=== PATIENT | female | born 1935 | race Caucasian/White ===

== ENCOUNTER 2017-02-20 18:23 | Observation (INO) | payer MEDICARE, OTHER ==
[2017-02-20] MEDS ORDERED: Lidocaine 1% 20 ML MDV INJECT ONE (18:50)
--- NOTE | 2017-02-20 19:15 | EDM.PDOC ---
ED HPI HEAD INJURY - General Chief Complaint: Head Injury Stated Complaint: FELL INJURED HEAD AND LT HIP AND HAND Time Seen by Provider: 02/20/17 18:55 Source: Reports: Patient History Limitations: Reports: No limitations - History of Present Illness INITIAL COMMENTS - FREE TEXT/NARRATIVE: 81-year-old female was stepping out of her car when she slipped on some gravel falling onto her left side. She sustained a left parietal head injury, chest pain in her left groin and developed sharp pleuritic pain in her left chest after arriving to the hospital. No shortness of breath but has pleuritic pain with breathing. No loss of consciousness, visual complaints but she is having trouble bearing weight due to the pelvic pain. She is not on anticoagulants. She has a large hematoma on the left upper parietal and temporal area of the scalp with some bleeding. Location: Reports: parietal (Left side), other (Also has pain in the left lateral chest and left groin) Severity: moderate Associated Symptoms: Reports: headache. 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 Denies : Shortness of Breath Cardiovascular: Reports: Chest pain (Sharp localized pain under the left breast) GI/Abdominal: Denies: Abdominal pain, Nausea, Vomiting : Reports: no symptoms Musculoskeletal: Reports: other (Has pain in the left lateral pelvis and groin) . Denies: neck pain Skin: Reports: other (Open laceration with large hematoma and bruising over the left parietal scalp) Neurological: Reports: Headache, Difficulty Walking (Due to pain in the pelvis, not the head injury) Psychiatric: Reports: Anxiety ED EXAM, HEAD INJURY - Physical Exam Exam: See Below Exam Limited By: No limitations General Appearance: alert, anxious Head: other (Patient has a fairly large hematoma on the left parietal scalp with some active bleeding from the laceration, 2.5 cm overlying the hematoma.) Eyes: bilateral eye: EOMI Neck: non-tender Respiratory: no respiratory distress, lungs clear, other (She is very tender to palpation over the left lateral anterior chest under the breast. No crepitus.) Cardiovascular: regular rate, rhythm GI/Abdominal Exam (Abbreviated): soft, non tender Extremities: other (Patient has tenderness to palpation in the left groin and with passive movement of the left hip. No shortening or rotation of the left leg) Neurologic: no motor/sensory deficits - Jules Coma Score Best Eye Response (Davilla): (4) open spontaneously Best Verbal Response (Davilla): (5) oriented Best Motor Response (Jules): (6) obeys commands Course - Vital Signs Last Recorded V/S: Last Vital Signs Temp 98.8 F 02/21/17 00:25 Pulse 86 02/21/17 00:25 Resp 14 02/21/17 00:25 BP 146/90 H 02/21/17 00:25 Pulse Ox 94 L 02/21/17 00:25 - Orders/Labs/Meds Orders: Active Orders 24 hr Category Date Time Status Chest wo Cont [CT] Stat Exams 02/20/17 19:10 Taken Head wo Cont [CT] Stat Exams 02/20/17 19:10 Taken Pelvis wo Cont [CT] Stat Exams 02/20/17 19:10 Taken Sodium Chloride 0.9% [Normal Saline] 1,000 ml Med 02/20/17 23:00 Active IV ASDIRECTED Medication Orders Acetaminophen (Tylenol) 650 mg PO Q4H PRN PRN Reason: Pain (Mild 1-3)/fever Albuterol (Proventil Neb Soln) 2.5 mg NEB Q4H PRN PRN Reason: Shortness Of Breath/wheezing Bisacodyl (Dulcolax) 5 mg PO DAILY PRN PRN Reason: Constipation Diphenhydramine HCl (Benadryl) 25 mg PO BEDTIME PRN PRN Reason: Sleep Docusate Sodium (Colace) 100 mg PO BID PRN PRN Reason: Constipation Sodium Chloride (Normal Saline) 1,000 mls @ 100 mls/hr IV ASDIRECTED SHIRAZ Lorazepam (Ativan) 1 mg IV Q6H PRN PRN Reason: Nausea/Vomiting Ondansetron HCl (Zofran Odt) 4 mg PO Q6H PRN PRN Reason: Nausea able to take PO Oxycodone HCl (Oxycodone) 5 mg PO Q4H PRN PRN Reason: Pain (moderate 4-6) Pantoprazole Sodium (Protonix) 40 mg PO DAILY SHIRAZ Labs: Laboratory Tests 02/20/17 02/20/17 Range/Units 23:10 23:10 WBC 9.3 (4.5-11.0) K/uL RBC 3.63 (3.30-5.50) M/uL Hgb 11.6 L (12.0-15.0) g/dL Hct 35.2 L (36.0-48.0) % MCV 97 (80-98) fL MCH 32 H (27-31) pg MCHC 33 (32-36) % Plt Count 195 (150-400) K/uL Neut % (Auto) 79 H (36-66) % Lymph % (Auto) 13 L (24-44) % [place] % (Auto) 6 (2-6) % Eos % (Auto) 2 (2-4) % Baso % (Auto) 0 (0-1) % Sodium 143 (140-148) mmol/L Potassium 4.0 (3.6-5.2) mmol/L Chloride 106 (100-108) mmol/L Carbon Dioxide 28 (21-32) mmol/L Anion Gap 8.8 (5.0-14.0) mmol/L BUN 18 (7-18) mg/dL Creatinine 1.1 H (0.6-1.0) mg/dL Est Cr Clr Drug Dosing 31.19 mL/min Estimated GFR (MDRD) 48 L (>60) Glucose 124 H (74-106) mg/dL Calcium 8.8 (8.5-10.1) mg/dL Meds: Medications Generic Name Dose Route Start Last Admin Trade Name Freq PRN Reason Stop Dose Admin Acetaminophen 650 mg 02/21/17 00:05 Tylenol PO Q4H PRN Pain (Mild 1-3)/fever Albuterol 2.5 mg 02/21/17 00:05 Proventil Neb Soln NEB Q4H PRN Shortness Of Breath/wheezing Bisacodyl 5 mg 02/21/17 00:05 Dulcolax PO DAILY PRN Constipation Diphenhydramine HCl 25 mg 02/21/17 00:05 Benadryl PO BEDTIME PRN Sleep Docusate Sodium 100 mg 02/21/17 00:05 Colace PO BID PRN Constipation Sodium Chloride 1,000 mls @ 100 mls/hr 02/20/17 23:00 Normal Saline IV ASDIRECTED SHIRAZ Lorazepam 1 mg 02/21/17 00:05 Ativan IV Q6H PRN Nausea/Vomiting Ondansetron HCl 4 mg 02/21/17 00:05 Zofran Odt PO Q6H PRN Nausea able to take PO Oxycodone HCl 5 mg 02/21/17 00:05 Oxycodone PO Q4H PRN Pain (moderate 4-6) Pantoprazole Sodium 40 mg 02/21/17 09:00 Protonix PO DAILY SHIRAZ Discontinued Medications Generic Name Dose Route Start Last Admin Trade Name Maria Eugenia PRN Reason Stop Dose Admin Hydrocodone Bitart/Acetaminophen 1 tab 02/20/17 19:52 02/20/17 19:56 [place] 325-5 Mg PO 02/20/17 19:53 1 tab ONETIME ONE Administration Lidocaine HCl 20 ml 02/20/17 18:50 02/20/17 19:05 Xylocaine 1% INJECT 02/20/17 18:51 20 ml ONETIME ONE Administration Morphine Sulfate 2 mg 02/21/17 00:05 Morphine IVPUSH Q2H PRN Pain (severe 7-10) Ondansetron HCl 4 mg 02/20/17 23:00 02/21/17 00:37 Zofran IVPUSH 02/21/17 00:05 4 mg ONETIME ONE Administration - Re-Assessments/Exams Free Text/Narrative Re-Assessment/Exam: 02/20/17 19:16 The hematoma was anesthetized with 1% lidocaine, the laceration was cleaned with Hibiclens and saline and 4 4-0 Ethilon sutures were used to close the laceration. She then had a head, chest and pelvis CT without contrast obtained. 02/20/17 21:56 CT scan showed nothing but one very small possible subacute cerebral hemorrhage the patient remained stable. She was given one oral [place] dose and I asked the hospitalist service to consider admission for pain control and observation. Departure - Departure Time of Disposition: 00:45 Disposition: Admitted As Inpatient 65 Condition: fair Clinical Impression: Subdural hematoma, acute Laceration of scalp Qualifiers: Encounter type: initial encounter Qualified Code(s): S01.01XA - Laceration without foreign body of scalp, initial encounter Contusion of hip, left Qualifiers: Encounter type: initial encounter Qualified Code(s): S70.02XA - Contusion of left hip, initial encounter - My Orders Last 24 Hours: My Active Orders 02/20/17 19:10 Chest wo Cont [CT] Stat Head wo Cont [CT] Stat Pelvis wo Cont [CT] Stat - Assessment/Plan Last 24 Hours: My Active Orders 02/20/17 19:10 Chest wo Cont [CT] Stat Head wo Cont [CT] Stat Pelvis wo Cont [CT] Stat
[2017-02-20] MEDS ORDERED: Acetaminophen/HYDROcodone 325-5 MG Tab PO ONE (19:52)
[2017-02-20] MEDS ORDERED: Ondansetron 4 MG/2 ML SDV IVPUSH ONE (23:00)
[2017-02-20] MEDS ORDERED: Sodium Chloride 0.9% 1,000 ML IV SCH (23:00)
[2017-02-21] MEDS ORDERED: Docusate Sodium 100 MG Cap PO PRN (00:05)
[2017-02-21] MEDS ORDERED: diphenhydrAMINE 25 MG Cap PO PRN (00:05)
[2017-02-21] MEDS ORDERED: Bisacodyl 5 MG Tab PO PRN (00:05)
[2017-02-21] MEDS ORDERED: LORazepam 2 MG/ML MDV IV PRN ×2 (00:05→11:00)
[2017-02-21] MEDS ORDERED: Morphine 2 MG/ML Syringe IVPUSH PRN (00:05)
[2017-02-21] MEDS ORDERED: Albuterol 0.083% 2.5 MG/3 ML Neb Soln NEB PRN (00:05)
[2017-02-21] MEDS: Acetaminophen 325 MG Tab PO PRN ×2 (03:42→13:58)
[2017-02-21] MEDS: oxyCODONE 5 MG Tab PO PRN ×2 (03:43→07:46)
[2017-02-21] MEDS: Ondansetron 4 MG Tab.DIS PO PRN ×2 (07:46→17:00)
--- NOTE | 2017-02-21 07:54 | PCM.HP ---
H&P History of Present Illness - General Date of Service: 02/20/17 Admit Problem/Dx: Admission Diagnosis/Problem Admission Diagnosis/Problem Head and neck injury Source of Information: Patient History Limitations: Reports: No limitations - History of Present Illness Initial Comments - Free Text/Narative: - History of Present Illness INITIAL COMMENTS - FREE TEXT/NARRATIVE: 81-year-old female was stepping out of her car when she slipped on some gravel falling onto her left side. She sustained a left parietal head injury, chest pain in her left groin and developed sharp pleuritic pain in her left chest after arriving to the hospital. No shortness of breath but has pleuritic pain with breathing. No loss of consciousness, visual complaints but she is having trouble bearing weight due to the pelvic pain. She is not on anticoagulants. She has a large hematoma on the left upper parietal and temporal area of the scalp with some bleeding. Location: Reports: parietal (Left side), other (Also has pain in the left lateral chest and left groin) Severity: moderate - Re-Assessments/Exams Free Text/Narrative Re-Assessment/Exam: 02/20/17 19:16 The hematoma was anesthetized with 1% lidocaine, the laceration was cleaned with Hibiclens and saline and 4 4-0 Ethilon sutures were used to close the laceration. She then had a head, chest and pelvis CT without contrast obtained. 02/20/17 21:56 CT scan showed nothing but one very small possible subacute cerebral hemorrhage the patient remained stable. She was given one oral [place] dose and I asked the hospitalist service to consider admission for pain control and observation. Departure Onset of Symptoms: Reports: today Duration of Symptoms: Reports: Constant Location: Reports: head Quality: Reports: Other (report headache) Worsens with: Reports: Cold therapy, Movement Context: Reports: trauma (fall getting out of her care) Associated Symptoms: Reports: confusion, headaches Left Leg Pain Score (Numeric/FACES): 5 - Related Data Allergies/Adverse Reactions: Allergies Allergy/AdvReac Type Severity Reaction Status Date / Time codeine Allergy Cannot Verified 07/02/16 10:03 Remember Sulfa (Sulfonamide Allergy Cannot Verified 07/02/16 10:03 Antibiotics) Remember Home Medications: Home Meds Acetaminophen [Tylenol Arthritis] 650 mg PO DAILY 08/03/13 [History] Naproxen Sodium [Aleve] 220 mg PO BID 08/31/13 [History] Ibuprofen [Advil] 400 mg PO DAILY PRN 04/05/14 [History] 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: Musculoskeletal History: Reports: Fracture - Past Surgical History Musculoskeletal Surgical History: Reports: Arthroscopic knee, Hip replacement Social & Family History - Family History Family Medical History: Unobtainable - Tobacco Use Smoking Status *Q: Never Smoker - Caffeine Use Caffeine Use: Reports: Coffee - Recreational Drug Use Recreational Drug Use: No - Living Situation & Occupation Living situation: Reports: (lives a [place] [email or web address], drives her car of 57 years 3 years ago "misses him terribly" 2 children; no grandchildren.) H&P Review of Systems - Review of Systems: Review Of Systems: See Below General: Reports: weakness, other (left sided head pain due to fall) HEENT: Reports: other (headache with laceration repair to left temporal region) Pulmonary: Reports: No Symptoms Cardiovascular: Reports: no symptoms Gastrointestinal: Reports: Nausea Genitourinary: Reports: frequency Musculoskeletal: Reports: muscle pain, muscle stiffness Skin: Reports: other (laceration repair to left temporal region.) Psychiatric: Reports: confusion Neurological: Reports: Headache Hematologic/Lymphatic: Reports: no symptoms Immunologic: Reports: no symptoms Exam - Exam Exam: See Below - Vital Signs Vital Signs: Last Vital Signs Temp 37.1 C 02/21/17 07:00 Pulse 70 02/21/17 07:00 Resp 16 02/21/17 07:00 BP 170/92 H 02/21/17 07:00 Pulse Ox 92 L 02/21/17 07:00 Weight: 72.5 kg - Exam General: alert, oriented (oriented to name, , does not know year or day of week.), cooperative, other (reports generalized pain from fall getting out of car) HEENT: PERRLA, Conjunctiva clear, EACs clear, EOMI, Hearing intact, Mucosa moist & pink, Normal nasal septum, Posterior pharynx clear, Pupils equal, Pupils reactive, TMs clear, Glasses Neck: supple, trachea midline Lungs: Clear to auscultation, Normal respiratory effort Cardiovascular: regular rate, regular rhythm, normal S1, normal S2 Abdomen: normal bowel sounds, soft (Female) Exam: Deferred Rectal (Female) Exam: Deferred Back Exam: normal inspection, full range of motion Extremities: normal inspection Skin: warm, dry, other (laceration repair with suture to left side of head.) Neurological: reflexes equal bilateral, strength equal bilateral, normal speech , normal tone, sensation intact Neuro Extensive - Mental Status: alert, normal mood/affect, normal cognition Neuro Extensive - Motor, Sensory, Reflexes: normal gait, normal reflexes Psychiatric: alert, normal affect, normal mood Physical Exam Comments:: this is a petite elderly female, neat and well groomed. - Patient Data Lab Results last 24 hrs: Laboratory Results - last 24 hr 02/21/17 02/21/17 02/21/17 Range/Units 00:12 05:24 05:24 WBC 7.5 (4.5-11.0) K/uL RBC 3.57 (3.30-5.50) M/uL Hgb 11.4 L (12.0-15.0) g/dL Hct 34.9 L (36.0-48.0) % MCV 98 (80-98) fL MCH 32 H (27-31) pg MCHC 33 (32-36) % Plt Count 189 (150-400) K/uL Neut % (Auto) 83 H (36-66) % Lymph % (Auto) 10 L (24-44) % [place] % (Auto) 6 (2-6) % Eos % (Auto) 1 L (2-4) % Baso % (Auto) 0 (0-1) % Sodium 142 (140-148) mmol/L Potassium 4.4 (3.6-5.2) mmol/L Chloride 107 (100-108) mmol/L Carbon Dioxide 29 (21-32) mmol/L Anion Gap 6.0 (5.0-14.0) mmol/L BUN 17 (7-18) mg/dL Creatinine 1.1 H (0.6-1.0) mg/dL Est Cr Clr Drug Dosing 32.62 mL/min Estimated GFR (MDRD) 48 L (>60) Glucose 124 H (74-106) mg/dL Calcium 8.5 (8.5-10.1) mg/dL Urine Color Yellow Urine Appearance Clear Urine pH 8.0 (4.5-8.0) Ur Specific [place] 1.015 (1.008-1.030) Urine Protein Negative (NEGATIVE) mg/dL Urine Glucose (UA) Normal (NEGATIVE) mg/dL Urine Ketones Negative (NEGATIVE) mg/dL Urine Occult Blood Moderate (NEGATIVE) Urine Nitrite Negative (NEGATIVE) Urine Bilirubin Negative (NEGATIVE) Urine Urobilinogen Normal (NORMAL) mg/dL Ur Leukocyte Esterase Negative (NEGATIVE) Urine RBC 5-10 H (0-5) Urine WBC Not seen (0-5) Ur Epithelial Cells Few Amorphous Sediment Not seen Urine Bacteria Not seen Urine Mucus Not seen Result Diagrams: 02/21/17 05:24 02/21/17 05:24 *Q Meaningful Use (ADM) - VTE *Q VTE Criteria *Q: - Stroke *Q Stroke Criteria *Q: - AMI *Q AMI Criteria *Q: - Problem List (1) Contusion of hip, left SNOMED Code(s): 80936580 ICD Code: S70.02XA - CONTUSION OF LEFT HIP, INITIAL ENCOUNTER Status: Acute Priority: Medium Current Visit: Yes Qualifiers: Encounter type: initial encounter Qualified Code(s): S70.02XA - Contusion of left hip, initial encounter (2) Laceration of scalp SNOMED Code(s): 054445895 ICD Code: S01.01XA - LACERATION WITHOUT FOREIGN BODY OF SCALP, INITIAL ENCOUNTER Status: Acute Priority: Medium Current Visit: Yes Qualifiers: Encounter type: initial encounter Qualified Code(s): S01.01XA - Laceration without foreign body of scalp, initial encounter (3) Subdural hematoma, acute SNOMED Code(s): 06494620 ICD Code: I62.01 - NONTRAUMATIC ACUTE SUBDURAL HEMORRHAGE Status: Acute Priority: High Current Visit: Yes Problem List Initiated/Reviewed/Updated: Yes Orders Last 24hrs: Active Orders 24 hr Category Date Time Status Patient Status [ADT] Routine ADT 02/21/17 00:05 Active Intake and Output [RC] QSHIFT Care 02/21/17 00:05 Active Oxygen Therapy [RC] PRN Care 02/21/17 00:05 Active RT Aerosol Therapy [RC] ASDIRECTED Care 02/21/17 00:05 Active Up With Assistance [RC] ASDIRECTED Care 02/21/17 00:05 Active VTE/DVT Education [RC] Per Unit Routine Care 02/21/17 00:05 Active Vital Signs [RC] Q4H Care 02/21/17 00:05 Active Consult to Spiritual Care [CONS] Routine Cons 02/21/17 00:05 Active Regular Diet [DIET] Diet 02/21/17 Breakfast Active Head wo Cont [CT] Timed Exams 02/21/17 12:00 Ordered Acetaminophen [Tylenol] Med 02/21/17 00:05 Active 650 mg PO Q4H PRN Albuterol [Proventil Neb Soln] Med 02/21/17 00:05 Active 2.5 mg NEB Q4H PRN Bisacodyl [Dulcolax] Med 02/21/17 00:05 Active 5 mg PO DAILY PRN Docusate Sodium [Colace] Med 02/21/17 00:05 Active 100 mg PO BID PRN LORazepam [Ativan] Med 02/21/17 00:05 Active 1 mg IV Q6H PRN Ondansetron [Zofran ODT] Med 02/21/17 00:05 Active 4 mg PO Q6H PRN Pantoprazole [ProTONIX] Med 02/21/17 07:30 Active 40 mg PO ACBREAKFAST diphenhydrAMINE [Benadryl] Med 02/21/17 00:05 Active 25 mg PO BEDTIME PRN oxyCODONE Med 02/21/17 00:05 Active 5 mg PO Q4H PRN Sequential Compression Device [OM.PC] Per Unit Routine Oth 02/21/17 00:05 Ordered Resuscitation Status Routine Resus Stat 02/20/17 23:29 Ordered Medication Orders Acetaminophen (Tylenol) 650 mg PO Q4H PRN PRN Reason: Pain (Mild 1-3)/fever Last Admin: 02/21/17 03:42 Dose: 650 mg Albuterol (Proventil Neb Soln) 2.5 mg NEB Q4H PRN PRN Reason: Shortness Of Breath/wheezing Bisacodyl (Dulcolax) 5 mg PO DAILY PRN PRN Reason: Constipation Diphenhydramine HCl (Benadryl) 25 mg PO BEDTIME PRN PRN Reason: Sleep Docusate Sodium (Colace) 100 mg PO BID PRN PRN Reason: Constipation Sodium Chloride (Normal Saline) 1,000 mls @ 100 mls/hr IV ASDIRECTED SHIRAZ Lorazepam (Ativan) 1 mg IV Q6H PRN PRN Reason: Nausea/Vomiting Ondansetron HCl (Zofran Odt) 4 mg PO Q6H PRN PRN Reason: Nausea able to take PO Last Admin: 02/21/17 07:46 Dose: 4 mg Oxycodone HCl (Oxycodone) 5 mg PO Q4H PRN PRN Reason: Pain (moderate 4-6) Last Admin: 02/21/17 07:46 Dose: 5 mg Admin: 02/21/17 03:43 Dose: 5 mg Pantoprazole Sodium (Protonix) 40 mg PO ACBREAKFAST [facility] Assessment/Plan Comment:: ASSESSMENT / PLAN -This is a 81 year old female present to ER with injuried related to fall from car to road. she has a laceration to left head. pain in left hips. She had a negativ chest and pelvis CT. Head CT show a tiny subdural hematoma. will admit to hospital for monitoring overnight and repeat head CT in am. Daughter who lives in [place] was notified of admission to the hospital. Plan -Admit to [address] [facility] for further monitoring -head CT schedule in am -IV fluids for rehydration NS at 100 mL per hour -medication order for pain and nausea -Advise to notify nurses of any chest pain or other symptoms -And a.m. labs: CBC, BMP Maintenance issues -Orders home meds: -Nutrition: Regular diet -Beck[place] catheter not indicated at this time -DVT: scd -GI Prophalaxis; Protonix 40mg daily CODE STATUS: Full Admission status: Admit to Observation -I expect this patient to stay less than 24 hours, not to exceed 96 hours for evaluation and management of this problem. Disposition; home Primary care provider:
[2017-02-21] MEDS: Pantoprazole 40 MG Tab.CR PO SCH (08:56)
[2017-02-21] MEDS ORDERED: Pantoprazole 40 MG Tab.CR PO SCH (09:00)
[2017-02-21] MEDS ORDERED: traMADol 50 MG Tab PO PRN (10:41)
--- NOTE | 2017-02-21 12:30 | PCM.PN ---
- General Info Date of Service: 02/21/17 Functional Status: Reports: pain controlled, urinating - Review of Systems Gastrointestinal: Reports: Vomiting Musculoskeletal: Reports: leg pain Psychiatric: Reports: confusion Systems Review Comment:: No acute events since admission. She did vomit following use of her hydrocodone this morning. She does have some short-term memory difficulties but they don't seem much worse than usual. She reports some pain on her left lateral thigh and hip but no chest pain, elbow pain, shoulder pain or knee pain. Repeat head CT this morning did not show any evidence for subdural hematoma. - Patient Data Vitals - most recent: Last Vital Signs Temp 36.8 C 02/21/17 10:52 Pulse 68 02/21/17 10:52 Resp 20 02/21/17 10:52 BP 145/90 H 02/21/17 10:52 Pulse Ox 96 02/21/17 10:52 Weight - most recent: 72.5 kg I&O - last 24 hours: Intake & Output 02/20/17 02/21/17 02/21/17 22:59 06:59 14:59 Output Total 250 Balance -250 Lab Results last 24 hrs: Laboratory Results - last 24 hr 02/21/17 02/21/17 02/21/17 Range/Units 00:12 05:24 05:24 WBC 7.5 (4.5-11.0) K/uL RBC 3.57 (3.30-5.50) M/uL Hgb 11.4 L (12.0-15.0) g/dL Hct 34.9 L (36.0-48.0) % MCV 98 (80-98) fL MCH 32 H (27-31) pg MCHC 33 (32-36) % Plt Count 189 (150-400) K/uL Neut % (Auto) 83 H (36-66) % Lymph % (Auto) 10 L (24-44) % [place] % (Auto) 6 (2-6) % Eos % (Auto) 1 L (2-4) % Baso % (Auto) 0 (0-1) % Sodium 142 (140-148) mmol/L Potassium 4.4 (3.6-5.2) mmol/L Chloride 107 (100-108) mmol/L Carbon Dioxide 29 (21-32) mmol/L Anion Gap 6.0 (5.0-14.0) mmol/L BUN 17 (7-18) mg/dL Creatinine 1.1 H (0.6-1.0) mg/dL Est Cr Clr Drug Dosing 32.62 mL/min Estimated GFR (MDRD) 48 L (>60) Glucose 124 H (74-106) mg/dL Calcium 8.5 (8.5-10.1) mg/dL Urine Color Yellow Urine Appearance Clear Urine pH 8.0 (4.5-8.0) Ur Specific [place] 1.015 (1.008-1.030) Urine Protein Negative (NEGATIVE) mg/dL Urine Glucose (UA) Normal (NEGATIVE) mg/dL Urine Ketones Negative (NEGATIVE) mg/dL Urine Occult Blood Moderate (NEGATIVE) Urine Nitrite Negative (NEGATIVE) Urine Bilirubin Negative (NEGATIVE) Urine Urobilinogen Normal (NORMAL) mg/dL Ur Leukocyte Esterase Negative (NEGATIVE) Urine RBC 5-10 H (0-5) Urine WBC Not seen (0-5) Ur Epithelial Cells Few Amorphous Sediment Not seen Urine Bacteria Not seen Urine Mucus Not seen Med Orders - Current: Current Medications Acetaminophen (Tylenol) 650 mg PO Q4H PRN PRN Reason: Pain (Mild 1-3)/fever Last Admin: 02/21/17 03:42 Dose: 650 mg Albuterol (Proventil Neb Soln) 2.5 mg NEB Q4H PRN PRN Reason: Shortness Of Breath/wheezing Bisacodyl (Dulcolax) 5 mg PO DAILY PRN PRN Reason: Constipation Diphenhydramine HCl (Benadryl) 25 mg PO BEDTIME PRN PRN Reason: Sleep Docusate Sodium (Colace) 100 mg PO BID PRN PRN Reason: Constipation Sodium Chloride (Normal Saline) 1,000 mls @ 100 mls/hr IV ASDIRECTED [facility]IR[facility] Lorazepam (Ativan) 0.5 mg IV Q6H PRN PRN Reason: Nausea/Vomiting Ondansetron HCl (Zofran Odt) 4 mg PO Q6H PRN PRN Reason: Nausea able to take PO Last Admin: 02/21/17 07:46 Dose: 4 mg Pantoprazole Sodium (Protonix) 40 [facility] Last Admin: 02/21/17 08:56 Dose: 40 mg Tramadol HCl (Ultram) 50 mg PO Q4H PRN PRN Reason: Pain Discontinued Medications Hydrocodone Bitart/Acetaminophen ([place] 325-5 Mg) 1 tab PO ONETIME ONE Stop: 02/20/17 19:53 Last Admin: 02/20/17 19:56 Dose: 1 tab Lidocaine HCl (Xylocaine 1%) 20 ml INJECT ONETIME ONE Stop: 02/20/17 18:51 Last Admin: 02/20/17 19:05 Dose: 20 ml Lorazepam (Ativan) 1 mg IV Q6H PRN PRN Reason: Nausea/Vomiting Morphine Sulfate (Morphine) 2 mg IVPUSH Q2H PRN PRN Reason: Pain (severe 7-10) Ondansetron HCl (Zofran) 4 mg IVPUSH ONETIME ONE Stop: 02/21/17 00:05 Last Admin: 02/21/17 00:37 Dose: 4 mg Oxycodone HCl (Oxycodone) 5 mg PO Q4H PRN PRN Reason: Pain (moderate 4-6) Last Admin: 02/21/17 07:46 Dose: 5 mg - Exam Quality Assessment: No: supplemental oxygen General: alert, cooperative, no acute distress. No: oriented HEENT: Pupils equal, Other (intact sutures, no bleeding L faith area) Neck: supple Lungs: Normal respiratory effort Cardiovascular: Regular Rate, Regular Rhythm, Other (no chest wall tenderness) Abdomen: soft, no tenderness, no distension Back Exam: full range of motion Extremities: no edema, no cyanosis, other (no joint deformity or tenderness of left shoulder, elbow, wrist, knee or ankle. Mild tenderness left lateral thigh. ) Skin: warm, dry Psy/Mental Status: alert, normal affect - Problem List Review Problem List Initiated/Reviewed/Updated: Yes - My Orders Last 24 Hours: My Active Orders 02/21/17 09:11 PT Evaluation and Treatment [CONS] Routine 02/21/17 09:30 Head wo Cont [CT] Timed 02/21/17 10:41 traMADol [Ultram] 50 mg PO Q4H PRN 02/21/17 11:00 LORazepam [Ativan] 0.5 mg IV Q6H PRN 02/21/17 12:28 Up to Chair [RC] QID - Plan Plan:: ASSESSMENT / PLAN Fall with left hip pain - imaging negative. Some concern for subdural hematoma last night but repeat study this morning did not show any evidence for subdural and review of exam from last night does not reveal any subdural that I can see. Patient does not tolerate narcotics well with vomiting and increased confusion. Physical therapy thought maybe she would need to be placed in a [facility] she can make some significant gains. -Pain control with acetaminophen and tramadol for severe pain -medication order for nausea -Up to chair 4 times a day Suspected cognitive deficits - patient with obvious short-term memory issues. Has been functioning fairly well in her current living situation though I have some concerns about her safety, especially with driving. I will encourage her to give up driving privileges at least temporarily if not permanently at the time of discharge. Maintenance issues - -Nutrition: Regular diet -Beck[place] catheter not indicated at this time -DVT: scd -GI Prophalaxis; Protonix 40mg daily Admission status: Admit to Observation -I expect this patient to stay less than 24 hours, not to exceed 96 hours for evaluation and management of this problem. Disposition - anticipate discharge back to her apartment after the hospital stay Lew Tucker M.D.
[2017-02-22] MEDS: Acetaminophen 325 MG Tab PO PRN ×3 (02:42→14:23)
[2017-02-22] MEDS: Pantoprazole 40 MG Tab.CR PO SCH (07:14)
--- NOTE | 2017-02-22 10:14 | PCM.PN ---
- General Info Date of Service: 02/22/17 Functional Status: Reports: pain controlled, tolerating diet, ambulating - Review of Systems General: Reports: Weakness Musculoskeletal: Reports: joint pain (hips) Neurological: Reports: Confusion - Patient Data Vitals - most recent: Last Vital Signs Temp 37.0 C 02/22/17 07:07 Pulse 72 02/22/17 07:07 Resp 16 02/22/17 07:07 BP 132/54 L 02/22/17 07:07 Pulse Ox 90 L 02/22/17 07:07 Weight - most recent: 72.5 kg I&O - last 24 hours: Intake & Output 02/21/17 02/22/17 02/22/17 22:59 06:59 14:59 Intake Total 60 240 Output Total 1100 Balance -1040 240 Med Orders - Current: Current Medications Acetaminophen (Tylenol) 650 mg PO Q4H PRN PRN Reason: Pain (Mild 1-3)/fever Last Admin: 02/22/17 07:14 Dose: 650 mg Albuterol (Proventil Neb Soln) 2.5 mg NEB Q4H PRN PRN Reason: Shortness Of Breath/wheezing Bisacodyl (Dulcolax) 5 mg PO DAILY PRN PRN Reason: Constipation Diphenhydramine HCl (Benadryl) 25 mg PO BEDTIME PRN PRN Reason: Sleep Last Admin: 02/22/17 02:42 Dose: 25 mg Docusate Sodium (Colace) 100 mg PO BID PRN PRN Reason: Constipation Last Admin: 02/22/17 07:14 Dose: 100 mg Influenza Virus Vaccine (Fluzone/Fluarix Vaccine) 60 mcg IM .ONCE ONE Stop: 02/22/17 12:01 Lorazepam (Ativan) 0.5 mg IV Q6H PRN PRN Reason: Nausea/Vomiting Last Admin: 02/21/17 23:50 Dose: 0.5 mg Ondansetron HCl (Zofran Odt) 4 mg PO Q6H PRN PRN Reason: Nausea able to take PO Last Admin: 02/21/17 17:00 Dose: 4 mg Pantoprazole Sodium (Protonix) 40 mg PO ACBREAKFAST [facility] Last Admin: 02/22/17 07:14 Dose: 40 mg Pneumococcal Polyvalent Vaccine (Pneumovax 23) 0.5 ml IM .ONCE ONE Stop: 02/22/17 12:01 Tramadol HCl (Ultram) 50 mg PO Q4H PRN PRN Reason: Pain Last Admin: 02/21/17 20:31 Dose: 50 mg Discontinued Medications Hydrocodone Bitart/Acetaminophen ([place] 325-5 Mg) 1 tab PO ONETIME ONE Stop: 02/20/17 19:53 Last Admin: 02/20/17 19:56 Dose: 1 tab Sodium Chloride (Normal Saline) 1,000 mls @ 100 mls/hr IV ASD[facility]RECTED [facility] Lidocaine HCl (Xylocaine 1%) 20 ml INJECT ONETIME ONE Stop: 02/20/17 18:51 Last Admin: 02/20/17 19:05 Dose: 20 ml Lorazepam (Ativan) 1 mg IV Q6H PRN PRN Reason: Nausea/Vomiting Morphine Sulfate (Morphine) 2 mg IVPUSH Q2H PRN PRN Reason: Pain (severe 7-10) Ondansetron HCl (Zofran) 4 mg IVPUSH ONETIME ONE Stop: 02/21/17 00:05 Last Admin: 02/21/17 00:37 Dose: 4 mg Oxycodone HCl (Oxycodone) 5 mg PO Q4H PRN PRN Reason: Pain (moderate 4-6) Last Admin: 02/21/17 07:46 Dose: 5 mg - Exam Quality Assessment: No: supplemental oxygen General: alert, cooperative, no acute distress Neck: supple Lungs: Normal respiratory effort Abdomen: soft, no distension Extremities: no edema, no cyanosis Skin: warm, dry Psy/Mental Status: alert, normal affect - My Orders Last 24 Hours: My Active Orders 02/21/17 09:30 Head wo Cont [CT] Timed 02/21/17 10:41 traMADol [Ultram] 50 mg PO Q4H PRN 02/21/17 11:00 LORazepam [Ativan] 0.5 mg IV Q6H PRN 02/21/17 12:28 Up to Chair [RC] QID 02/21/17 13:22 Convert IV to [place] Lock [OM.PC] Routine 02/22/17 12:00 Flu Vaccine (36Mos+)/PF [Fluzone/Fluarix Vaccine] 60 mcg IM .ONCE ONE Pneumococcal Polyvalent-23 Vac [Pneumovax 23] 0.5 ml IM .ONCE ONE - Plan Plan:: ASSESSMENT / PLAN Fall with left hip pain - imaging negative. Some concern for subdural hematoma last night but repeat study this morning did not show any evidence for subdural and review of exam from last night does not reveal any subdural that I can see. Patient does not tolerate narcotics well with vomiting and increased confusion. Physical therapy thought maybe she would need to be placed in a halfway she can make some significant gains. -Pain control with acetaminophen and tramadol for severe pain -medication order for nausea -Up to chair 4 times a day Suspected cognitive deficits - patient with obvious short-term memory issues. Has been functioning fairly well in her current living situation though I have some concerns about her safety, especially with driving. I will encourage her to give up driving privileges at least temporarily if not permanently at the time of discharge. Maintenance issues - -Nutrition: Regular diet -[place] catheter not indicated at this time -DVT: scd -GI Prophalaxis; Protonix 40mg daily Admission status: Admit to Observation -I expect this patient to stay less than 24 hours, not to exceed 96 hours for evaluation and management of this problem. Disposition - anticipate discharge back to her apartment after the hospital stay Lew Tucker M.D.
[2017-02-22 10:56] VITALS: BP 118/68
[2017-02-22] MEDS ORDERED: Pneumococcal Polyvalent-23 Vaccine 0.5 ML SDV IM ONE (12:00)
[2017-02-22] MEDS ORDERED: Flu Vaccine 2016-17(36Mos+)/PF 60 MCG/0.5 ML Syringe IM ONE (12:00)
--- NOTE | 2017-02-22 13:19 | PCM.DCSUM1 ---
Discharge Summary - Hospital Course Brief History: 81-year-old female with mild cognitive deficits who presents after a fall and injury to the left side of her body including a left scalp hematoma. She was admitted for observation and pain control. - Discharge Data Discharge Date: 02/22/17 Discharge Disposition: Home, W Home Health Agency 06 Condition: Good - Discharge Diagnosis/Problem(s) (1) Fall SNOMED Code(s): 5419650, 173391489 ICD Code: W19.XXXA - UNSPECIFIED FALL, INITIAL ENCOUNTER Status: Acute Current Visit: Yes Qualifiers: Encounter type: initial encounter Qualified Code(s): W19.XXXA - Unspecified fall, initial encounter (2) Laceration of scalp SNOMED Code(s): 729962484 ICD Code: S01.01XA - LACERATION WITHOUT FOREIGN BODY OF SCALP, INITIAL ENCOUNTER Status: Acute Priority: Medium Current Visit: Yes Qualifiers: Encounter type: initial encounter Qualified Code(s): S01.01XA - Laceration without foreign body of scalp, initial encounter (3) Contusion of hip, left SNOMED Code(s): 02359645 ICD Code: S70.02XA - CONTUSION OF LEFT HIP, INITIAL ENCOUNTER Status: Acute Priority: Medium Current Visit: Yes Qualifiers: Encounter type: initial encounter Qualified Code(s): S70.02XA - Contusion of left hip, initial encounter - Patient Summary/Data Consults: Consultations 02/21/17 00:05 Consult to Spiritual Care [CONS] Routine Spiritual Care Reason for Consult: Loss Spiritual Care Specialty: [employer] Worker 02/21/17 09:11 PT Evaluation and Treatment [CONS] Routine Please Evaluate and Treat. PT Reason for Consult: Ambulation This query below is only for informational purposes and is not editable. Admission Diagnosis/Problem: Head and neck injury Hospital Course: Carline presented to the emergency room after falling while trying to get out of the car and suffering trauma to the left side of her body and the left side of her head. Workup in the emergency room revealed a left temporal area laceration that was repaired with sutures. Initial head CT raise some concern for a tiny subdural hematoma. She was very weak and had a fair amount of pain and was admitted for observation. The morning after admission she had some difficulty with confusion as well as vomiting. These were thought to be related to the 2 doses of hydrocodone she received. She has not had recurrence of these after the hydrocodone was discontinued. A repeat head CT the morning after admission showed no evidence for subdural hematoma and further review of the original head CT in discussion with the radiologist suggested there may not have been a subdural presents as initially concerned. Her mental status seems to have returned to baseline. Her pain has been fairly well-controlled utilizing only acetaminophen and a single dose of tramadol at bedtime last night. There is no evidence for infection. She did work with physical therapy the morning after admission and they thought maybe a skilled nursing would be an official but this was while she was confused and still in a fair amount of pain. She has made some improvements as far as her physical condition and is ambulating well with a front-wheeled walker. I do have some concerns about her memory but her current living situation seems to be adequate since she has not had repeated trips to the emergency room or significant difficulties as of yet. I suspect that she had at least a mild concussion from the fall and recommended that she not drive for the next 2 weeks. With her memory difficulties it may be best if she did not drive anymore. On the day of discharge her daughter is planning to come stay with her for a couple of days so she will be safe at home. We did fill out a referral for home health care to provide assistance. The daughter is going to be searching for some additional assistance to help keep her safe at home as well. The patient will be utilizing acetaminophen for mild to moderate pain and tramadol only for severe pain. She will need to have her scalp sutures removed in approximately 10 days. - Patient Instructions Diet: Regular Diet as Tolerated Activity: As Tolerated Driving: Do Not Drive (At least until your followup with Dr. Sun) Showering/Bathing: May Shower Notify Provider of: Fever, Increased Pain, Nausea and/or Vomiting Other/Special Instructions: 1. You were in the hospital for observation after a fall with a left scalp hematoma. The fall was complicated by an increase in your arthritis pain. Your pain has been well-controlled using only pills and I believe you're safe for outpatient management at this time. I would recommend that you take acetaminophen 1000 mg 3 times a day to help control both the acute pain from the fall as well as your chronic arthritis-type pain. You can use the tramadol as needed for severe pain. This medication may make you a little bit sleepy and bedtime is a good time to consider using this pain medication. 2. You suffered a mild concussion from the fall and I would recommend that should not drive for at least the next 2 weeks. You should discuss future driving privileges with Dr. Sun at your followup appointment. 3. You should have your sutures removed in approximately 10 days. 4. I have placed a referral to home health care services to provide home physical therapy. 5. Please seek medical attention if you develop fever greater than 101 , increasing confusion or severe pain that cannot be controlled with acetaminophen or tramadol. - Discharge Plan Prescriptions/Med Rec: Acetaminophen 1,000 mg PO TID #90 tablet traMADol [Ultram] 50 mg PO Q4H PRN #10 tablet PRN Reason: Pain (Severe 7-10) Home Medications: Home Meds Naproxen Sodium [Aleve] 220 mg PO BID 08/31/13 [History] Acetaminophen 1,000 mg PO TID #90 tablet 02/22/17 [Rx] traMADol [Ultram] 50 mg PO Q4H PRN #10 tablet 02/22/17 [Rx] Patient Handouts: Facial or Scalp Contusion Referrals: Nj Sun MD [Primary Care Provider] - (followup in 10 days - followup hospital stay for fall and scalp hematoma, will need sutures removed) - Discharge Summary/Plan Comment DC Time >30 min.: No (25) - Patient Data Vitals - Most Recent: Last Vital Signs Temp 36.2 C 02/22/17 10:55 Pulse 58 L 02/22/17 10:55 Resp 16 02/22/17 10:55 BP 118/68 02/22/17 10:55 Pulse Ox 92 L 02/22/17 10:55 Weight - Most Recent: 72.5 kg I&O - Last 24 hours: Intake & Output 02/21/17 02/22/17 02/22/17 22:59 06:59 14:59 Intake Total 60 240 240 Output Total 1100 Balance -1040 240 240 Med Orders - Current: Current Medications Acetaminophen (Tylenol) 650 mg PO Q4H PRN PRN Reason: Pain (Mild 1-3)/fever Last Admin: 02/22/17 07:14 Dose: 650 mg Albuterol (Proventil Neb Soln) 2.5 mg NEB Q4H PRN PRN Reason: Shortness Of Breath/wheezing Bisacodyl (Dulcolax) 5 mg PO DAILY PRN PRN Reason: Constipation Diphenhydramine HCl (Benadryl) 25 mg PO BEDTIME PRN PRN Reason: Sleep Last Admin: 02/22/17 02:42 Dose: 25 mg Docusate Sodium (Colace) 100 mg PO BID PRN PRN Reason: Constipation Last Admin: 02/22/17 07:14 Dose: 100 mg Lorazepam (Ativan) 0.5 mg IV Q6H PRN PRN Reason: Nausea/Vomiting Last Admin: 02/21/17 23:50 Dose: 0.5 mg Ondansetron HCl (Zofran Odt) 4 mg PO Q6H PRN PRN Reason: Nausea able to take PO Last Admin: 02/21/17 17:00 Dose: 4 mg Pantoprazole Sodium (Protonix) 40 mg PO ACBREAKFAST [facility] Last Admin: 02/22/17 07:14 Dose: 40 mg Tramadol HCl (Ultram) 50 mg PO Q4H PRN PRN Reason: Pain Last Admin: 02/21/17 20:31 Dose: 50 mg Discontinued Medications Hydrocodone Bitart/Acetaminophen ([place] 325-5 Mg) 1 tab PO ONETIME ONE Stop: 02/20/17 19:53 Last Admin: 02/20/17 19:56 Dose: 1 tab Sodium Chloride (Normal Saline) 1,000 mls @ 100 mls/hr IV ASDIRECTED [facility] Influenza Virus Vaccine (Fluzone/Fluarix Vaccine) 60 mcg IM .ONCE ONE Stop: 02/22/17 12:01 Lidocaine HCl (Xylocaine 1%) 20 ml INJECT ONETIME ONE Stop: 02/20/17 18:51 Last Admin: 02/20/17 19:05 Dose: 20 ml Lorazepam (Ativan) 1 mg IV Q6H PRN PRN Reason: Nausea/Vomiting Morphine Sulfate (Morphine) 2 mg IVPUSH Q2H PRN PRN Reason: Pain (severe 7-10) Ondansetron HCl (Zofran) 4 mg IVPUSH ONETIME ONE Stop: 02/21/17 00:05 Last Admin: 02/21/17 00:37 Dose: 4 mg Oxycodone HCl (Oxycodone) 5 mg PO Q4H PRN PRN Reason: Pain (moderate 4-6) Last Admin: 02/21/17 07:46 Dose: 5 mg Pneumococcal Polyvalent Vaccine (Pneumovax 23) 0.5 ml IM .ONCE ONE Stop: 02/22/17 12:01 *Q Meaningful Use (DIS) - VTE *Q VTE Criteria *Q: - Stroke *Q Stroke Criteria *Q: - AMI *Q AMI Criteria *Q:
== END 2017-02-22 15:30 | disposition home health service (06) ==
LOC: JP.ED 18:23 → JP.MS 23:22
PROVIDERS: ADMIT Internal Medicine; ATTEND Internal Medicine
DX: S01.01XA Laceration without foreign body of scalp, initial encounter (principal); S70.02XA Contusion of left hip, initial encounter; W19.XXXA Unspecified fall, initial encounter; Z79.899 Other long term (current) drug therapy; Z88.2 Allergy status to sulfonamides; Z88.8 Allergy status to other drugs, medicaments and biological substances; Z96.649 Presence of unspecified artificial hip joint; Z96.659 Presence of unspecified artificial knee joint; Z23 Encounter for immunization
CPT/HCPCS: 12001; 36415; 70450; 71250; 72192; 80048; 81001; 85025; 96374; 96375; 97162; 99217; 99220; 99225; 99285; A9270; G0008; G0009; G0378; J2060; J2405; 90686; 90732

== ENCOUNTER 2017-03-19 20:20 | Inpatient (IN) | payer MEDICARE, OTHER ==
[2017-03-19] MEDS ORDERED: HYDROmorphone 0.5 MG/0.5 ML Syringe IVPUSH ONE ×3 (20:22→22:40)
[2017-03-19] MEDS ORDERED: Ondansetron 4 MG/2 ML SDV IVPUSH ONE (20:22)
[2017-03-19] MEDS ORDERED: Sodium Chloride 0.9% 1,000 ML IV SCH ×2 (20:30→22:30)
[2017-03-19] MEDS ORDERED: Sodium Chloride 0.9% 10 ML Syringe FLUSH ONE (22:04)
[2017-03-19] MEDS ORDERED: Sodium Chloride 0.9% 75 ML IV SCH (22:15)
[2017-03-19] MEDS ORDERED: Iopamidol 612 MG/ML 100 ML Bottle IV SCH (22:15)
[2017-03-19] MEDS ORDERED: cefOXitin 2 GM in Sodium Chloride 0.9% 50 ML IV ONE (23:04)
--- NOTE | 2017-03-19 23:08 | EDM.PDOC ---
ED HPI GI/ABDOMINAL - General Chief Complaint: Abdominal Pain Stated Complaint: MEDICAL Time Seen by Provider: 03/19/17 20:40 Source: Reports: Patient History Limitations: Reports: No limitations - History of Present Illness INITIAL COMMENTS - FREE TEXT/NARRATIVE: pt arrived with acute onset abdomanal pain on the rt mid abdoman. She was well earlier in the day. Timing/Duration: Reports: Hour(s):, Getting worse, Other ( very sudden onset. ) Location: other (rt mid abdoman.) Quality: Reports: stabbing, throbbing, radiating Severity: severe Associated Symptoms (-Female): Reports: other ( severe rt sided abdomanal pain ) - Related Data Allergies/ADRs: Allergies Allergy/AdvReac Type Severity Reaction Status Date / Time codeine Allergy Cannot Verified 03/19/17 20:45 Remember Sulfa (Sulfonamide Allergy Cannot Verified 03/19/17 20:45 Antibiotics) Remember Home Meds: Home Meds Naproxen Sodium [Aleve] 220 mg PO BID 08/31/13 [History] Acetaminophen 600 mg PO QID 03/11/17 [History] Ascorbic Acid [Vitamin C] 1 tab PO DAILY 03/11/17 [History] Vitamin E Mixed [Vitamin E] 1 tab PO DAILY 03/11/17 [History] Zinc 1 tab PO DAILY 03/11/17 [History] 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: Musculoskeletal History: Reports: Fracture - Infectious Disease History Infectious Disease History: Reports: Chicken pox, Rheumatic Fever - Past Surgical History HEENT Surgical History: Reports: Tonsillectomy Musculoskeletal Surgical History: Reports: Arthroscopic knee, Hip replacement Social & Family History - Family History Family Medical History: Unobtainable - Tobacco Use Smoking Status *Q: Never Smoker Second Hand Smoke Exposure: No - Caffeine Use Caffeine Use: Reports: Coffee - Recreational Drug Use Recreational Drug Use: No - Living Situation & Occupation Living situation: Reports: ([facility] [place] [facility], drives her car of 57 years 3 years ago "misses him terribly" 2 children; no grandchildren.) ED ROS GENERAL - Review of Systems Review Of Systems: See Below Constitutional: Reports: no symptoms HEENT: Reports: No symptoms Respiratory: Reports: No Symptoms Cardiovascular: Reports: No symptoms Endocrine: Reports: no symptoms GI/Abdominal: Reports: Other (marked pain on the rt side. ) : Reports: no symptoms Musculoskeletal: Reports: no symptoms Skin: Reports: no symptoms Neurological: Reports: No Symptoms ED EXAM, GI/ABD - Physical Exam Exam: See Below Text/Narrative:: pt arrived with very severe pain in the rt abdoman. This was a very sudden onset. Exam Limited By: No limitations General Appearance: alert, severe distress Eyes: bilateral: normal appearance, EOMI Ears: normal TMs Nose: normal inspection Throat/Mouth: Normal inspection Head: atraumatic Neck: normal inspection Respiratory/Chest: no respiratory distress Cardiovascular: regular rate, rhythm GI/Abdominal: other (marked tenderness in the rt abdoman. She is not vomiting. ) Rectal (Female) Exam: Deferred Back Exam: normal inspection Extremities: normal inspection Neurological: alert, oriented, normal cognition Course - Vital Signs Last Recorded V/S: Last Vital Signs Temp 36.1 C 03/19/17 22:32 Pulse 93 03/19/17 22:32 Resp 19 03/19/17 20:37 BP 149/55 H 03/19/17 22:32 Pulse Ox 89 L 03/19/17 22:32 - Orders/Labs/Meds Orders: Active Orders 24 hr Category Date Time Status Abdomen Pelvis w Cont [CT] Stat Exams 03/19/17 21:59 Taken Iopamidol [Isovue-300 (61%)] Med 03/19/17 22:15 Active 100 ml IV . DIRECTED Sodium Chloride 0.9% [Normal Saline] 1,000 ml Med 03/19/17 20:30 Active IV ASDIRECTED Sodium Chloride 0.9% [Normal Saline] 1,000 ml Med 03/19/17 22:30 Active IV ASDIRECTED Sodium Chloride 0.9% [Normal Saline] 75 ml Med 03/19/17 22:15 Active IV ASDIRECTED Medication Orders Sodium Chloride (Normal Saline) 1,000 mls @ 999 mls/hr IV ASDIRECTED SHIRAZ Last Admin: 03/19/17 20:29 Dose: 999 mls/hr Sodium Chloride (Normal Saline) 75 mls @ 3 mls/sec IV ASDIRECTED SHIRAZ Last Admin: 03/19/17 22:28 Dose: 3 mls/sec Sodium Chloride (Normal Saline) 1,000 mls @ 300 mls/hr IV ASDIRECTED SHIRAZ Last Admin: 03/19/17 22:36 Dose: 300 mls/hr Iopamidol (Isovue-300 (61%)) 100 ml IV . DIRECTED SHIRAZ Last Admin: 03/19/17 22:27 Dose: 100 ml Labs: Laboratory Tests 03/19/17 03/19/17 03/19/17 Range/Units 20:30 20:30 20:30 WBC 8.5 (4.5-11.0) K/uL RBC 3.35 (3.30-5.50) M/uL Hgb 10.9 L (12.0-15.0) g/dL Hct 33.0 L (36.0-48.0) % MCV 99 H (80-98) fL MCH 33 H (27-31) pg MCHC 33 (32-36) % Plt Count 315 (150-400) K/uL Neut % (Auto) 64 (36-66) % Lymph % (Auto) 21 L (24-44) % [place] % (Auto) 11 H (2-6) % Eos % (Auto) 4 (2-4) % Baso % (Auto) 0 (0-1) % Sodium 140 (140-148) mmol/L Potassium 4.3 (3.6-5.2) mmol/L Chloride 104 (100-108) mmol/L Carbon Dioxide 28 (21-32) mmol/L Anion Gap 8.1 (5.0-14.0) mmol/L BUN 22 H (7-18) mg/dL Creatinine 1.2 H (0.6-1.0) mg/dL Est Cr Clr Drug Dosing 29.89 mL/min Estimated GFR (MDRD) 43 L (>60) Glucose 106 (74-106) mg/dL Calcium 8.8 (8.5-10.1) mg/dL Total Bilirubin 0.8 (0.2-1.0) mg/dL AST 23 (15-37) U/L ALT 23 (12-78) U/L Alkaline Phosphatase 210 H (46-116) U/L C-Reactive Protein 2.90 H (0.0-0.3) mg/dL Total Protein 7.2 (6.4-8.2) g/dL Albumin 3.6 (3.4-5.0) g/dL Globulin 3.6 H (2.3-3.5) g/dL Albumin/Globulin Ratio 1.0 L (1.2-2.2) Urine Color Urine Appearance Urine pH (4.5-8.0) Ur Specific [place] (1.008-1.030) Urine Protein (NEGATIVE) mg/dL Urine Glucose (UA) (NEGATIVE) mg/dL Urine Ketones (NEGATIVE) mg/dL Urine Occult Blood (NEGATIVE) Urine Nitrite (NEGATIVE) Urine Bilirubin (NEGATIVE) Urine Urobilinogen (NORMAL) mg/dL Ur Leukocyte Esterase (NEGATIVE) Urine RBC (0-5) Urine WBC (0-5) Ur Epithelial Cells Amorphous Sediment Urine Bacteria Urine Mucus 03/19/17 Range/Units 21:40 WBC (4.5-11.0) K/uL RBC (3.30-5.50) M/uL Hgb (12.0-15.0) g/dL Hct (36.0-48.0) % MCV (80-98) fL MCH (27-31) pg MCHC (32-36) % Plt Count (150-400) K/uL Neut % (Auto) (36-66) % Lymph % (Auto) (24-44) % [place] % (Auto) (2-6) % Eos % (Auto) (2-4) % Baso % (Auto) (0-1) % Sodium (140-148) mmol/L Potassium (3.6-5.2) mmol/L Chloride (100-108) mmol/L Carbon Dioxide (21-32) mmol/L Anion Gap (5.0-14.0) mmol/L BUN (7-18) mg/dL Creatinine (0.6-1.0) mg/dL Est Cr Clr Drug Dosing mL/min Estimated GFR (MDRD) (>60) Glucose (74-106) mg/dL Calcium (8.5-10.1) mg/dL Total Bilirubin (0.2-1.0) mg/dL AST (15-37) U/L ALT (12-78) U/L Alkaline Phosphatase (46-116) U/L C-Reactive Protein (0.0-0.3) mg/dL Total Protein (6.4-8.2) g/dL Albumin (3.4-5.0) g/dL Globulin (2.3-3.5) g/dL Albumin/Globulin Ratio (1.2-2.2) Urine Color Yellow Urine Appearance Clear Urine pH 5.0 (4.5-8.0) Ur Specific [place] 1.015 (1.008-1.030) Urine Protein Negative (NEGATIVE) mg/dL Urine Glucose (UA) Normal (NEGATIVE) mg/dL Urine Ketones Negative (NEGATIVE) mg/dL Urine Occult Blood Negative (NEGATIVE) Urine Nitrite Negative (NEGATIVE) Urine Bilirubin Small (NEGATIVE) Urine Urobilinogen Normal (NORMAL) mg/dL Ur Leukocyte Esterase Negative (NEGATIVE) Urine RBC 0-5 (0-5) Urine WBC 0-5 (0-5) Ur Epithelial Cells Not seen Amorphous Sediment Not seen Urine Bacteria Not seen Urine Mucus Not seen Meds: Medications Generic Name Dose Route Start Last Admin Trade Name Freq PRN Reason Stop Dose Admin Sodium Chloride 1,000 mls @ 999 mls/hr 03/19/17 20:30 03/19/17 20:29 Normal Saline IV 999 mls/hr ASDIRECTED SHIRAZ Administration Sodium Chloride 75 mls @ 3 mls/sec 03/19/17 22:15 03/19/17 22:28 Normal Saline IV 3 mls/sec ASDIRECTED SHIRAZ Administration Sodium Chloride 1,000 mls @ 300 mls/hr 03/19/17 22:30 03/19/17 22:36 Normal Saline IV 300 mls/hr ASDIRECTED SHIRAZ Administration Iopamidol 100 ml 03/19/17 22:15 03/19/17 22:27 Isovue-300 (61%) IV 100 ml . DIRECTED SHIRAZ Administration Discontinued Medications Generic Name Dose Route Start Last Admin Trade Name Freq PRN Reason Stop Dose Admin Hydromorphone HCl 0.5 mg 03/19/17 20:22 03/19/17 20:30 Dilaudid IVPUSH 03/19/17 20:23 0.5 mg ONETIME ONE Administration Hydromorphone HCl 0.5 mg 03/19/17 21:13 03/19/17 21:21 Dilaudid IVPUSH 03/19/17 21:14 0.5 mg ONETIME ONE Administration Hydromorphone HCl 0.5 mg 03/19/17 22:40 03/19/17 22:50 Dilaudid IVPUSH 03/19/17 22:41 0.5 mg ONETIME ONE Administration Ondansetron HCl 4 mg 03/19/17 20:22 03/19/17 20:32 Zofran IVPUSH 03/19/17 20:23 4 mg ONETIME ONE Administration Sodium Chloride 10 ml 03/19/17 22:04 03/19/17 22:28 Saline Flush FLUSH 03/19/17 22:05 10 ml ONETIME ONE Administration - Re-Assessments/Exams Free Text/Narrative Re-Assessment/Exam: 03/19/17 23:09 pt arrived with severe rt sided abdomanal pain . This was of very acute onset. Departure - Departure Time of Disposition: 23:10 Disposition: Admitted As Inpatient 65 Condition: fair Clinical Impression: Intra-abdominal free air of unknown etiology Forms: ED Department Discharge Care Plan Goals: admit to Dr valdez. - My Orders Last 24 Hours: My Active Orders 03/19/17 20:30 Sodium Chloride 0.9% [Normal Saline] 1,000 ml IV ASDIRECTED 03/19/17 21:59 Abdomen Pelvis w Cont [CT] Stat 03/19/17 22:15 Iopamidol [Isovue-300 (61%)] 100 ml IV . DIRECTED Sodium Chloride 0.9% [Normal Saline] 75 ml IV ASDIRECTED 03/19/17 22:30 Sodium Chloride 0.9% [Normal Saline] 1,000 ml IV ASDIRECTED - Assessment/Plan Last 24 Hours: My Active Orders 03/19/17 20:30 Sodium Chloride 0.9% [Normal Saline] 1,000 ml IV ASDIRECTED 03/19/17 21:59 Abdomen Pelvis w Cont [CT] Stat 03/19/17 22:15 Iopamidol [Isovue-300 (61%)] 100 ml IV . DIRECTED Sodium Chloride 0.9% [Normal Saline] 75 ml IV ASDIRECTED 03/19/17 22:30 Sodium Chloride 0.9% [Normal Saline] 1,000 ml IV ASDIRECTED
[2017-03-19] MEDS ORDERED: Succinylcholine/Normal Saline 200 MG/10 ML Syringe ONE (23:35)
[2017-03-19] MEDS ORDERED: Rocuronium 50 MG/5 ML Vial ONE (23:35)
[2017-03-19] MEDS ORDERED: Neostigmine Methylsulfate 1 MG/ML 5 ML Syringe ONE (23:35)
[2017-03-19] MEDS ORDERED: Dexamethasone 4 MG/ML SDV ONE (23:35)
[2017-03-19] MEDS ORDERED: Ondansetron 4 MG/2 ML SDV ONE (23:35)
[2017-03-19] MEDS ORDERED: Propofol 200 MG/20 ML SDV ONE (23:35)
[2017-03-19] MEDS ORDERED: fentaNYL 250 MCG/5 ML SDV ONE (23:36)
[2017-03-20] MEDS ORDERED: Meropenem 500 MG SDV ONE (00:20)
[2017-03-20] MEDS ORDERED: Sodium Chloride 0.9% 10 ML ONE (00:20)
[2017-03-20] MEDS ORDERED: Lactated Ringers 1,000 ML ONE (00:45)
[2017-03-20] MEDS ORDERED: fentaNYL 25 MCG/HR Transdermal Patch TRDERM SCH (01:15)
[2017-03-20] MEDS ORDERED: Ondansetron 4 MG/2 ML SDV IV PRN (01:26)
[2017-03-20] MEDS ORDERED: Pantoprazole 40 MG Vial IVPUSH STA (01:37)
[2017-03-20] MEDS ORDERED: Naloxone 0.4 MG/ML SDV IVPUSH PRN (01:42)
[2017-03-20] MEDS ORDERED: Dextrose 5%-Lactated Ringers 1,000 ML IV SCH (01:45)
[2017-03-20] MEDS: HYDROmorphone/Normal Saline 15 MG/30 ML PCA IV PRN (02:51)
[2017-03-20] MEDS: hydrOXYzine HCl 50 MG/ML SDV IM PRN ×2 (04:17→18:46)
[2017-03-20] MEDS: cefOXitin 2 GM in Sodium Chloride 0.9% 50 ML IV SCH ×3 (06:08→21:13)
[2017-03-20] MEDS ORDERED: CHECK FENTANYL PATCH TOP SCH (09:00)
[2017-03-20] MEDS: Magnesium Sulfate/Water 2 GM in Premix Bag 1 BAG IV SCH ×3 (10:53→22:15)
--- NOTE | 2017-03-20 13:56 | CR ---
Chest abdomen There is a nasogastric tube. The tube is coiled within the stomach. There is evidence of a drainage catheter positioned in the left upper quadrant. Shallow lung volumes are demonstrated. The heart and vascular structures are unremarkable. Impression: 1. Nasogastric tube positioned within the stomach.
--- NOTE | 2017-03-20 15:36 | PN ---
DATE OF SERVICE: 03/20/2017 SUBJECTIVE: Carline had surgery around midnight. She came into the ER with a perforated duodenal ulcer. Vital signs have been stable. 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 Her pain has been controlled. Beckford catheter has put out 450 mL since admission to the floor and SHANI drain put out 2 mL. REVIEW OF SYSTEMS: Remainder of review of systems negative for any pertinent positives and negatives. OBJECTIVE: GENERAL: Carline Curtis is an 81-year-old female. VITAL SIGNS: TPR is 96.4, 74, 20, blood pressure 122/65. O2 saturations by pulse oximetry are 95% on 2 L of O2. HEENT: Negative. NECK: Supple. HEART: Regular rate and rhythm. LUNGS: Clear. ABDOMEN: Dressings dry and intact. Abdominal binder is on. EXTREMITIES: Without peripheral edema and SCDs are on. ASSESSMENT: Exploratory laparotomy with vagotomy and pyloroplasty, drainage of right subhepatic abscess, and repair of paraesophageal diaphragmatic hernia for perforated duodenal ulcer, right subhepatic abscess, and periesophageal diaphragmatic hernia. Date of surgery is 03/20/2017. PLAN: 1. Decrease IV to 100 mL per hour at noon. 2. Magnesium 2 grams q.6 hours x48 hours. 3. Check H. pylori breath test. The other test was not available. 4. Check CBC, CMP, mag, phos in a.m. 5. Schedule and have consent signed for delayed primary closure. IV sedation. Cesar Callahan MD. 03/22/2016, at 0730 hours. N.p.o. after midnight. 6. Leave Beckford catheter in for accurate measurement of output and continue NG. 7. Good pulmonary toilet encouraged. 8. We will evaluate p.r.n. or in a.m. Tammy Echeverria PA-C /[id number]
[2017-03-20] MEDS: Pantoprazole 40 MG Vial IVPUSH SCH (17:16)
[2017-03-20] MEDS: Dextrose 5%-Lactated Ringers 1,000 ML IV SCH (20:26)
[2017-03-20] MEDS ORDERED: Furosemide 20 MG/2 ML VIAL IVPUSH ONE (22:30)
[2017-03-21] MEDS: Magnesium Sulfate/Water 2 GM in Premix Bag 1 BAG IV SCH ×4 (03:11→22:01)
[2017-03-21] MEDS: Pantoprazole 40 MG Vial IVPUSH SCH ×2 (03:11→16:57)
[2017-03-21] MEDS: cefOXitin 2 GM in Sodium Chloride 0.9% 50 ML IV SCH ×3 (05:38→21:18)
[2017-03-21] MEDS: Dextrose 5%-Lactated Ringers 1,000 ML IV SCH ×2 (08:44→22:01)
[2017-03-21] MEDS: Furosemide 20 MG/2 ML VIAL IV SCH ×2 (08:44→20:47)
[2017-03-21] MEDS: HYDROmorphone/Normal Saline 15 MG/30 ML PCA IV PRN (23:30)
[2017-03-22] MEDS: Magnesium Sulfate/Water 2 GM in Premix Bag 1 BAG IV SCH (04:45)
[2017-03-22] MEDS: Pantoprazole 40 MG Vial IVPUSH SCH ×2 (04:45→16:03)
[2017-03-22] MEDS ORDERED: Meropenem 500 MG SDV ONE (06:39)
[2017-03-22] MEDS: Dextrose 5%-Lactated Ringers 1,000 ML IV SCH ×2 (06:43→20:28)
[2017-03-22] MEDS: cefOXitin 2 GM in Sodium Chloride 0.9% 50 ML IV SCH (06:49)
[2017-03-22] MEDS: Bupivacaine 0.5% 50 ML MDV ONE ×2 (07:25→08:01)
[2017-03-22] MEDS: Lidocaine 1% with EPINEPHrine 1:100,000 50 ML MDV ONE ×2 (07:26→08:01)
[2017-03-22] MEDS ORDERED: Propofol 200 MG/20 ML SDV ONE (07:44)
[2017-03-22] MEDS ORDERED: Meropenem 500 MG SDV IRR ONE (08:05)
[2017-03-22] MEDS ORDERED: Potassium Phosphates 25 MMOLE in Sodium Chloride 0.9% 500 ML IV ONE ×2 (11:00→11:30)
[2017-03-22] MEDS: Furosemide 20 MG/2 ML VIAL IV SCH ×2 (11:03→17:17)
--- NOTE | 2017-03-22 13:35 | PN ---
DATE OF SERVICE: 03/21/2017 The patient has been afebrile with stable vital signs. Urine output is a little bit low. She had a dose of Lasix and has been satisfactory since that time. Creatinine is stable at 1.3. Otherwise, she has remained confused, this will take her a while for this to clear I would expect and otherwise, we will give her some low-dose Lasix today and recheck some labs tomorrow and delayed primary closure of the incision tomorrow. Cesar Callahan MD /[id number]
--- NOTE | 2017-03-22 14:44 | PN ---
DATE OF SERVICE: 03/22/2017 The patient has been afebrile with stable vital signs. She is diuresing somewhat and I think we will empirically give her some Lasix to stay out of things, otherwise she will have a delayed primary closure. Today, I think we will hold off on diet until probably tomorrow, and we will most likely start some liquid diet, and otherwise she remains confused. Hopefully, that will clearing. Cesar Callahan MD /[id number]
--- NOTE | 2017-03-22 15:41 | OR ---
DATE OF PROCEDURE: 03/22/2017 PREOPERATIVE DIAGNOSIS: Open abdominal incision. POSTOPERATIVE DIAGNOSIS: Open abdominal incision. PROCEDURE: Delayed primary closure of open abdominal incision. ANESTHESIA: IV sedation plus local. INDICATION FOR PROCEDURE: The patient is 2-1/2 days status post an open laparotomy for perforated duodenal ulcer. At the time of the procedure, it was felt that the skin and subcutaneous tissue would be high risk for wound infection if a primary closure was undertaken, and this was packed open for a planned delayed primary closure at this time. Potential risks including bleeding and infection were reviewed, and the patient wishes to proceed. DETAILS OF PROCEDURE: The patient was taken to the operating room and placed in a supine position. IV sedation was administered, after which the abdominal dressing was taken down, and the incision was inspected and found to be clean. The incision was then prepped and draped, anesthetized with 1% lidocaine, mixed with Marcaine and irrigated with meropenem- containing saline solution. A 10-Russian round Regulo-Penaloza drain was then placed through a stab wound inferior to the incision, and the incision then closed with layers of 3-0 and 4-0 Vicryl stitch deep and chilo for the skin. The drain was affixed with some 3-0 Vicryl stitch. There were no evident complications. The patient was taken to the recovery room in satisfactory condition. Cesar Callahan MD /[id number]
[2017-03-22] MEDS ORDERED: Potassium Phosphates 20 MMOLE in Sodium Chloride 0.9% 250 ML IV ONE (16:00)
[2017-03-23] MEDS: Pantoprazole 40 MG Vial IVPUSH SCH ×2 (03:53→15:52)
[2017-03-23] MEDS: Dextrose 5%-Lactated Ringers 1,000 ML IV SCH ×2 (08:56→21:28)
[2017-03-23] MEDS ORDERED: Furosemide 20 MG/2 ML VIAL IVPUSH ONE (09:00)
[2017-03-23] MEDS: Potassium Chloride 20 MEQ, Lidocaine 1% 2 ML in Sodium Chloride 0.9% 100 ML IV SCH ×3 (10:13→15:03)
--- NOTE | 2017-03-23 12:20 | PN ---
DATE OF SERVICE: 03/23/2017 SUBJECTIVE: Carline has shown quite a bit of confusion. Hemoglobin was 9.1, potassium is 3.9, creatinine is 1.4. She is voiding without any difficulty. Her output is 3250. She had delayed primary closure yesterday. OBJECTIVE: GENERAL: Carline is an 81-year-old female, confused. VITAL SIGNS: TPR 97.4, 80, 18, and blood pressure 140/76. HEENT: Negative. NECK: Supple. HEART: Regular rate and rhythm. LUNGS: Clear. ABDOMEN: Occlusive dressing is on. She has 2 SHANI drains and they have drained 30 and 25 respectively. EXTREMITIES: Without peripheral edema. ASSESSMENT: 1. Exploratory laparotomy with vagotomy and pyloroplasty, drainage of right subhepatic abscess, and repair of paraesophageal diaphragmatic hernia for perforated duodenal ulcer, right subhepatic abscess, and periesophageal diaphragmatic hernia. Date of surgery, 03/20/2017. 2. Delayed primary closure, 03/22/2017. PLAN: 1. Clear liquid diet. 2. Ensure supplement t.i.d. 3. Lasix 20 mg IV one time today. 4. KCl 60 mEq in 3 divided doses with lidocaine. 5. Check CBC, CMP, mag, phos, and BNP in a.m. 6. Consult discharge planning in regard to discharge, to be in contact with Mona, her daughter. 7. Good pulmonary toilet encouraged. 8. We will evaluate p.r.n. or in a.m. Tammy Echeverria PA-C /[id number]
[2017-03-24] MEDS: Pantoprazole 40 MG Vial IVPUSH SCH ×2 (03:53→15:17)
[2017-03-24] MEDS ORDERED: Bisacodyl 5 MG Tab PO ONE (09:00)
[2017-03-24] MEDS: Docusate Sodium 100 MG Cap PO SCH ×2 (10:07→20:17)
[2017-03-24] MEDS: Acetaminophen/HYDROcodone 325-5 MG Tab PO PRN ×2 (11:39→20:55)
[2017-03-24] MEDS: Acetaminophen 325 MG Tab PO PRN (15:22)
--- NOTE | 2017-03-24 17:40 | PCM.CONS ---
H&P History of Present Illness - General Date of Service: 03/24/17 Admit Problem/Dx: Admission Diagnosis/Problem Admission Diagnosis/Problem Acute duodenal ulcer with perforation Source of Information: Patient, Family, Provider, RN notes reviewed - History of Present Illness Initial Comments - Free Text/Narative: This patient is an 81-year-old woman with been asked to see by Dr. Callahan for further suggestions concerning evaluation and management of possible depression as well as delirium. She was admitted to this facility or management of a perforated duodenal ulcer and underwent surgery for this on the . She was taken back to surgery on the for delayed primary closure. Her daughter has raised concerns about symptoms of depression over the past several months. Patient herself is unable to provide significant history concerning recent symptoms because of her dementia. During her hospital stay has had some difficulty with delirium and mild agitation. Left Groin Pain Score (Numeric/FACES): 3 Right abdomen Pain Score (Numeric/FACES): 4 - Related Data Allergies/Adverse Reactions: Allergies Allergy/AdvReac Type Severity Reaction Status Date / Time codeine Allergy Cannot Verified 03/19/17 20:45 Remember Sulfa (Sulfonamide Allergy Cannot Verified 03/19/17 20:45 Antibiotics) Remember Home Medications: Home Meds Naproxen Sodium [Aleve] 220 mg PO BID 08/31/13 [History] Acetaminophen 600 mg PO QID 03/11/17 [History] Ascorbic Acid [Vitamin C] 1 tab PO DAILY 03/11/17 [History] Vitamin E Mixed [Vitamin E] 1 tab PO DAILY 03/11/17 [History] Zinc 1 tab PO DAILY 03/11/17 [History] Past Medical History Genitourinary History: Reports: Other (see below) Other Genitourinary History: Frequency AUTOMATIC GLOVE [employer] AND FORMER History: Reports: Musculoskeletal History: Reports: Fracture - Infectious Disease History Infectious Disease History: Reports: Chicken pox, Rheumatic Fever - Past Surgical History HEENT Surgical History: Reports: Tonsillectomy Musculoskeletal Surgical History: Reports: Arthroscopic knee, Hip replacement Social & Family History - Family History Family Medical History: Unobtainable - Tobacco Use Smoking Status *Q: Never Smoker Second Hand Smoke Exposure: No - Caffeine Use Caffeine Use: Reports: Coffee - Recreational Drug Use Recreational Drug Use: No - Living Situation & Occupation Living situation: Reports: (lives a [facility] apartments, drives her car of 57 years 3 years ago "misses him terribly" 2 children; no grandchildren.) H&P Review of Systems - Review of Systems: Review Of Systems: Unable To Obtain General: Reports: ROS unobtainable (secondary to dementia) Exam - Exam Exam: See Below - Vital Signs Vital Signs: Last Vital Signs Temp 98.6 F 03/24/17 16:14 Pulse 97 03/24/17 16:14 Resp 20 03/24/17 16:14 BP 169/97 H 03/24/17 16:14 Pulse Ox 91 L 03/24/17 16:14 Weight: 159 lb 13.362 oz - Exam General: alert, cooperative, mild distress Neck: supple, trachea midline, +2 carotid pulse wo bruit Lungs: Clear to auscultation, Normal respiratory effort Cardiovascular: regular rate, regular rhythm, normal S1, normal S2 Abdomen: soft, tenderness, hypoactive bowel sounds. No: distention, guarding, rigidity, rebound Extremities: 3, normal inspection, 10 Skin: warm, dry, intact - Patient Data Lab Results last 24 hrs: Laboratory Results - last 24 hr 03/24/17 03/24/17 Range/Units 04:36 04:36 WBC 6.8 (4.5-11.0) K/uL RBC 2.91 L (3.30-5.50) M/uL Hgb 9.1 L (12.0-15.0) g/dL Hct 28.7 L (36.0-48.0) % MCV 99 H (80-98) fL MCH 31 (27-31) pg MCHC 32 (32-36) % Plt Count 275 (150-400) K/uL Sodium 141 (140-148) mmol/L Potassium 4.6 (3.6-5.2) mmol/L Chloride 106 (100-108) mmol/L Carbon Dioxide 30 (21-32) mmol/L Anion Gap 4.6 L (5.0-14.0) mmol/L BUN 17 (7-18) mg/dL Creatinine 1.3 H (0.6-1.0) mg/dL Est Cr Clr Drug Dosing 27.59 mL/min Estimated GFR (MDRD) 39 L (>60) Glucose 114 H (74-106) mg/dL Calcium 8.0 L (8.5-10.1) mg/dL Phosphorus 2.8 (2.5-4.9) mg/dL Magnesium 1.9 (1.8-2.4) mg/dL Total Bilirubin 0.6 (0.2-1.0) mg/dL AST 36 (15-37) U/L ALT 31 (12-78) U/L Alkaline Phosphatase 139 H (46-116) U/L [id number] Pept 1142 H (5-450) pg/mL Total Protein 5.7 L (6.4-8.2) g/dL Albumin 2.1 L (3.4-5.0) g/dL Globulin 3.6 H (2.3-3.5) g/dL Albumin/Globulin Ratio 0.6 L (1.2-2.2) Result Diagrams: 03/24/17 04:36 03/24/17 04:36 Consult PN Assessment/Plan Procedures: Procedures COMPLETE CBC W/AUTO DIFF WBC (02/20/17) CT HEAD/BRAIN W/O DYE (02/20/17) CT PELVIS W/O DYE (02/20/17) CT THORAX W/O DYE (02/20/17) EMERGENCY DEPT VISIT (02/20/17) INITIAL OBSERVATION CARE (02/20/17) INJ TRIGGER POINT 1/2 MUSCL (06/21/14) INJECT SPINE LUMBAR/SACRAL (05/28/16) INJECT TRIGGER POINTS 3/> (03/11/17) METABOLIC PANEL TOTAL CA (02/20/17) MRI LUMBAR SPINE W/O DYE (11/30/13) OBSERVATION CARE DISCHARGE (02/20/17) PT EVAL MOD COMPLEX 30 MIN (02/20/17) ROUTINE VENIPUNCTURE (02/20/17) RPR S/N/AX/GEN/TRNK 2.5CM/< (02/20/17) SUBSEQUENT OBSERVATION CARE (02/20/17) THER/PROPH/DIAG INJ IV PUSH (02/20/17) TX/PRO/DX INJ NEW DRUG ADDON (02/20/17) URINALYSIS AUTO W/SCOPE (02/20/17) Problem List Initiated/Reviewed/Updated: Yes My Orders last 24 hours: My Active Orders 03/24/17 17:45 Citalopram [Celexa] 10 mg PO DAILY 03/24/17 21:00 Melatonin 9 mg PO BEDTIME Plan: ASSESSMENT AND RECOMMENDATIONS DEPRESSION-patient herself is unable to provide much in the way of history because of her underlying dementia. Daughter reports several symptoms over the past few months that are very consistent with depression. -Celexa 10 mg by mouth daily -Reassess in one month as to whether symptoms have improved DEMENTIA WITH DELIRIUM IN THE HOSPITAL -Haldol 1 mg by mouth every 2 hours as needed for agitation -Melatonin 9 mg by mouth each bedtime STATUS POST SURGICAL REPAIR OF PERFORATED DUODENAL ULCER -Ongoing postoperative care per surgical service Requesting Provider: DANG Date Consult Requested: 03/24/17 Reason for Consult: evaluate for depression Patient History Reviewed: Yes
[2017-03-24] MEDS: Citalopram 10 MG Tab PO SCH (18:29)
[2017-03-24] MEDS: Haloperidol 1 MG Tab PO PRN (20:22)
[2017-03-24] MEDS: Melatonin 3 MG Tab PO SCH (20:22)
[2017-03-25] MEDS: Pantoprazole 40 MG Vial IVPUSH SCH ×2 (05:11→18:11)
[2017-03-25] MEDS: Dextrose 5%-Lactated Ringers 1,000 ML IV SCH ×2 (05:13→16:32)
--- NOTE | 2017-03-25 07:46 | PN ---
DATE OF SERVICE: 03/25/2017 SUBJECTIVE: Carline did have one bowel movement. She has had less confusion. She was started on the Celexa 10 mg yesterday and the Haldol. She reports no pain. She will be having some nerve injections today, per Anesthesia. Afebrile. REVIEW OF SYSTEMS: Remainder of review of systems negative for any pertinent positives and negatives. OBJECTIVE: GENERAL: Carline Curtis is an 81-year-old female. VITAL SIGNS: TPR is 97.5, 74, 16, blood pressure 157/85. O2 is 92% by pulse oximetry. HEENT: Negative. NECK: Supple. HEART: Regular rate and rhythm. LUNGS: Clear. ABDOMEN: Two SHANI drains are intact draining a pink serous drainage. SHANI drain #1 has put out 50 and SHANI drain #2 has put out 25. EXTREMITIES: Without peripheral edema. ASSESSMENT: 1. Exploratory laparotomy with vagotomy and pyloroplasty, drainage of right subhepatic abscess, and repair of paraesophageal diaphragmatic hernia for perforated duodenal ulcer, right subhepatic abscess, and periesophageal diaphragmatic hernia. Date of surgery, 03/20/2017. 2. Delayed primary closure on 03/22/2017. PLAN: 1. Remove SHANI drain #1, which is a peripheral drain. Leave in midline drain. 2. May shower. 3. Continue good pulmonary toilet. 4. We will evaluate p.r.n. or in a.m. Tammy Echeverria PA-C /[id number]
--- NOTE | 2017-03-25 08:16 | OR ---
DATE OF PROCEDURE: 03/20/2017 PREOPERATIVE DIAGNOSIS: Perforated viscus. POSTOPERATIVE DIAGNOSES: 1. Perforated duodenal ulcer. 2. Right subhepatic abscess. 3. Paraesophageal diaphragmatic hernia. OPERATIVE PROCEDURE: 1. Exploratory laparotomy with:. a. Vagotomy and pyloroplasty (52851). b. Drainage of right subhepatic abscess (60887). c. Repair of paraesophageal diaphragmatic hernia (48247). ANESTHESIA: General. INDICATION FOR PROCEDURE: This is an 81-year-old presenting with acute onset of abdominal pain earlier today. On workup, she was noted to have some free air predominantly in the upper abdomen. The overall suggestion would be likely perforated stomach or duodenal ulcer. The patient is chronically on naproxen for treatment of arthritis without any antisecretory medications. Plan is to proceed with exploratory laparotomy and repair of the perforation and/or resection as needed. Potential risks including bleeding, further infection, leaks from various GI tract closures, as well as possibility of cardiopulmonary, septic, or hemorrhagic complications leading to were discussed, and the patient wishes to proceed. PROCEDURE IN DETAIL: The patient was taken to the operating room. After general endotracheal anesthesia was induced, a Beckford catheter was inserted and the abdomen prepped and draped. A nasogastric tube was also placed. Upper midline incision was made and carried down through the full-thickness of the abdominal wall. Upon entering the peritoneal cavity, some free air was encountered. As one dissected down from the omentum and above the hepatic flexure, a focal abscess was encountered. This contained some purulent bile-stained material. This was aspirated, and cultures were obtained. This confirmed that the patient had an anterior perforated duodenal ulcer. The remainder of the stomach exam was unremarkable. At this point, the decision was made to proceed with a vagotomy and pyloroplasty with vagotomy intended to decrease risk of subsequent ulcer disease, given her likely need to use some anti-inflammatory medications for her arthritis. At this point, from the point of perforation, an incision was made distally and then proximally 1 cm in each direction. Transverse closure of the opening in a standard Heineke- Mikulicz pyloroplasty fashion was done with interrupted 3-0 Vicryl stitches. Once these were in place, they were then tied, and the area was then reinforced with fibrin sealant as well, and at the end of procedure, the omentum was tacked down over the pyloroplasty as well. As one approached the area of the esophagogastric junction, the patient was noted to have a significant paraesophageal diaphragmatic hernia, and this contained some omentum anterior to it. This was reduced and the peritoneum around it then incised, and anterior closure of the diaphragmatic hernia was then accomplished with some 0 Ethibond sutures. At that point, with the esophagus reduced and that area dissected, truncal vagotomies were undertaken with LDS device, and the peritoneum anterior to the esophagus during the course of the dissection was, by definition, divided as well, thus making an adequate and complete vagotomy likely. At this point, the abdomen was irrigated with antibiotic-containing saline solution. Regulo- Penaloza drain was taken out through a stab wound in the right mid abdomen and draped across the pyloroplasty closure. The midline fascia was then approximated with a #2 Vicryl stitch. The skin and subcutaneous tissue were felt to be high risk for wound infection, should they be closed, and therefore, this was packed open with Iodoform gauze for planned delayed primary closure in 2-3 days. The patient was taken to the recovery room in satisfactory condition. There were other no complications. Cesar Callahan MD /[id number]
--- NOTE | 2017-03-25 08:29 | PN ---
DATE OF SERVICE: 03/24/2017 The patient has been afebrile with stable vital signs. She is still somewhat confused but seemingly less so. We will go over to oral pain medication today, trying to just use Tylenol but, if not, low-dose [place]. She has not moved her bowels as of yet. We will give her some bowel stimulation and go up to a full liquid diet. The daughter is requesting an antidepressant, and we will have Dr. Pina see the patient regarding that issue. From a discharge planning standpoint, the patient will be receiving trigger point injections tomorrow, and it may be just as well to have her stay until the weekend, when she goes home with a 24-hour help with her family members. Cesar Callahan MD /[id number]
[2017-03-25] MEDS: Citalopram 10 MG Tab PO SCH (09:26)
[2017-03-25] MEDS: Docusate Sodium 100 MG Cap PO SCH ×2 (09:26→20:52)
[2017-03-25] MEDS: Acetaminophen 325 MG Tab PO PRN (09:32)
[2017-03-25] MEDS ORDERED: Bupivacaine 0.5% 30 ML SDV ONE (10:16)
[2017-03-25] MEDS: Acetaminophen/HYDROcodone 325-5 MG Tab PO PRN ×2 (13:41→21:43)
[2017-03-25] MEDS: Pantoprazole 40 MG Tab.CR PO SCH (18:01)
[2017-03-25] MEDS: Melatonin 3 MG Tab PO SCH (20:52)
[2017-03-26] MEDS: Pantoprazole 40 MG Tab.CR PO SCH ×2 (07:18→15:57)
[2017-03-26] MEDS: Acetaminophen 325 MG Tab PO PRN ×4 (07:27→23:47)
--- NOTE | 2017-03-26 07:47 | PN ---
DATE OF SERVICE: 03/26/2017 SUBJECTIVE: Carline has been confused most of the night. She has been afebrile. REVIEW OF SYSTEMS: Review of systems is otherwise negative for any pertinent positives or negatives. OBJECTIVE: GENERAL: Carline Curtis is an 81-year-old female. VITAL SIGNS: TPR is 98.3, 94, 18, blood pressure 167/93. HEENT: Negative. NECK: Supple. HEART: Regular rate and rhythm. LUNGS: Clear. ABDOMEN: Abdominal binder is on. One SHANI drain. Midline is intact. EXTREMITIES: Without peripheral edema. ASSESSMENT: 1. Exploratory laparotomy with vagotomy and pyloroplasty, drainage of right subhepatic abscess, and repair of paraesophageal diaphragmatic hernia for perforated duodenal ulcer, right subhepatic abscess, and periesophageal diaphragmatic hernia. Date of surgery 03/20/2017. 2. Delayed primary closure on 03/22/2017. PLAN: 1. Finalize discharge placement. Plan discharge on 03/28/2017. 2. Discontinue Orbisonia. 3. Celebrex 200 mg p.o. daily. 4. Give Haldol at bedtime. 5. We will evaluate p.r.n. or in a.m. Tammy Echeverria PA-C /[id number]
[2017-03-26] MEDS: Docusate Sodium 100 MG Cap PO SCH ×2 (08:11→20:34)
[2017-03-26] MEDS: Citalopram 10 MG Tab PO SCH (08:11)
[2017-03-26] MEDS: Celecoxib 200 MG Cap PO SCH (08:24)
[2017-03-26] MEDS: Melatonin 3 MG Tab PO SCH (20:34)
[2017-03-26] MEDS: Haloperidol 1 MG Tab PO PRN (20:35)
[2017-03-27 07:35] VITALS: BP 139/105
[2017-03-27] MEDS: Citalopram 10 MG Tab PO SCH ×2 (07:49→09:11)
[2017-03-27] MEDS: Celecoxib 200 MG Cap PO SCH ×2 (07:49→09:11)
[2017-03-27] MEDS: Docusate Sodium 100 MG Cap PO SCH ×2 (07:50→09:12)
[2017-03-27] MEDS: Pantoprazole 40 MG Tab.CR PO SCH (07:50)
--- NOTE | 2017-03-27 08:16 | DISCH ---
ADMISSION DIAGNOSIS: Abdominal pain. DISCHARGE DIAGNOSES: 1. Exploratory laparotomy with vagotomy and pyloroplasty, drainage of right subhepatic abscess, and repair of paraesophageal diaphragmatic hernia for perforated duodenal ulcer, right subhepatic abscess, and periesophageal diaphragmatic hernia. Date of surgery, 03/20/2017. 2. Delayed primary closure on 03/22/2017. 3. Delirium. 4. Depression. HISTORY: Carline is an 81-year-old female who presented with acute onset of abdominal pain in the ER after preoperative evaluation and discussion of possible risks and possible complications, she wished to proceed with surgical procedure. HOSPITAL COURSE: Carline had her surgery on 03/20/2017. She had no operative complications. She had delayed primary closure on 03/22/2017. She did have postoperative delirium with some underlying depression. She did have an Internal Medicine consult and was started on Celexa and Haldol. She was started on a diet after having a bowel movement, full liquid diet advanced to soft. Discharge planning was involved, and she was able to be discharged to home with her daughter on 03/27/2017, without any surgical complications. She does remain agitated with confusion. PHYSICAL EXAMINATION: GENERAL: Carline is an 81-year-old female. She is confused and agitated today. VITAL SIGNS: TPR is 99, 94, 18, blood pressure 163/105. Her blood pressure prior to that was 145/90 and 169/86. O2 is 93% on room air. HEENT: Negative. NECK: Supple. HEART: Regular rate and rhythm. LUNGS: Clear. ABDOMEN: [place] in place. SHANI drain will be removed prior to discharge. There is some redness at the site. Abdominal binder is on. EXTREMITIES: Without peripheral edema. NEUROLOGIC: She is confused and agitated. DISPOSITION: Discharged to home. CONDITION AT DISCHARGE: Stable and improving. FOLLOWUP: Appointment with Cesar Callahan MD, at [facility] on 04/01/2017. She is to get a breath test for H. pylori prior to her appointment at 0930 hours. DISCHARGE MEDICATIONS: Home medications; 1. Tylenol 650 mg oral every 4 hours p.r.n. pain. 2. Celebrex 200 mg p.o. daily, #30. 3. Citalopram 10 mg p.o. daily, #30, one refill. 4. Colace 100 mg oral twice daily, #100. 5. Haldol 1 mg oral every 2 hours as needed, #30. 6. Melatonin 9 mg oral at bedtime. 7. Protonix 40 mg oral at bedtime. She will need to be on the Protonix for the rest of her life, 11 refills were given. 8. She is to resume her home medication of vitamin C one tablet daily, vitamin E one tablet daily, and zinc one tablet daily. 9. Discontinue taking naproxen or Aleve. DISCHARGE DIET: Diet after discharge; drink 8 to 10 glasses of water a day, mechanical soft diet, and protein supplement 3 times daily. ACTIVITY: Walk short distances 6 times a day. Shower/bathing, may shower. DISCHARGE INSTRUCTIONS: Notify provider if fever, increased pain, nausea, or vomiting. Keep site clean and dry. Wear abdominal binder for 2 weeks and then as tolerated. Use incentive spirometer 10 times every hour while awake.
== END 2017-03-27 10:20 | disposition home health service (06) | DRG 326 ==
LOC: JP.ED 20:20 → JP.SDS 23:11 → JP.MS 23:12 → UNDOADMIN 23:12 → JP.MS 03-20 01:26 → UNDOADMIN 03-20 09:27 → JP.MS 03-20 09:27 → UNDOADMIN 03-20 23:12 → UNDODISIN 03-27 10:20
PROVIDERS: ADMIT Surgery; ATTEND Physician Assistant Medical
PROC: 0W9G0ZX Drainage of Peritoneal Cavity, Open Approach, Diagnostic (ICD-10-PCS; principal; 2017-03-19)
PROC: 0DQ70ZZ Repair Stomach, Pylorus, Open Approach (ICD-10-PCS; 2017-03-19)
PROC: 008Q0ZZ Division of Vagus Nerve, Open Approach (ICD-10-PCS; 2017-03-19)
PROC: 0BQS0ZZ (ICD-10-PCS; 2017-03-19)
PROC: 0BQR0ZZ (ICD-10-PCS; 2017-03-19)
PROC: 0WQF0ZZ Repair Abdominal Wall, Open Approach (ICD-10-PCS; 2017-03-22)
DX: K26.1 Acute duodenal ulcer with perforation (principal); K65.1 Peritoneal abscess; R10.9 Unspecified abdominal pain; F05 Delirium due to known physiological condition; K44.9 Diaphragmatic hernia without obstruction or gangrene; Z48.1 Encounter for planned postprocedural wound closure; Z79.1 Long term (current) use of non-steroidal anti-inflammatories (NSAID); F32.9 Major depressive disorder, single episode, unspecified; Z96.649 Presence of unspecified artificial hip joint; Z88.5 Allergy status to narcotic agent; Z88.2 Allergy status to sulfonamides; R45.1 Restlessness and agitation
CPT/HCPCS: 36415; 43281; 43641; 49020; 74177; 80053; 81001; 85025; 86140; 93005; 96361; 96365; 96375; 96376; 99285 ×2; J0694; J1100; J1170 ×3; J2405 ×2; J2704; J3010; J7030; J7040 ×2; J7050 ×2; Q9967; 71010; 71010-26; 80048; 83735; 83880; 84100; 85027; 87070; 87075; 87205; 87338; 94762; 97035-GP; 97110-GP; 97116-GP; 97162-GP; 97530-GP; A9270-GY; C9113; J1940; J2185; J3410; J3475; J3480; J3490; J7042; J7120

== ENCOUNTER 2017-11-24 14:00 | Emergency (ER) | payer MEDICARE, OTHER ==
[2017-11-24 14:26] VITALS: BP 193/94
--- NOTE | 2017-11-24 14:48 | EDM.PDOC ---
ED HPI GENERAL MEDICAL PROBLEM - General Chief Complaint: Lower Extremity Injury/Pain Stated Complaint: SWOLLEN RT FOOT Time Seen by Provider: 11/24/17 14:35 Source of Information: Reports: Patient, Old Records, RN History Limitations: Reports: Other (Patient is a poor historian) - History of Present Illness INITIAL COMMENTS - FREE TEXT/NARRATIVE: 82 yo female presents to the ER today with slowly increased swelling of both legs. They seem a little worse after the holidays. She denies SOB or calf pain. Has not been to her provider lately. Has a hx of peripheral neuropathy, yet tells me the numbness in her legs is one of the reasons she is here. Lives in town in a sr living situation. Daughter reportedly made her come today, she lives in [place]. Carline has some dementia. Onset: Gradual Duration: Chronic, Getting Worse Location: Reports: Lower Extremity, Left, Lower Extremity, Right Severity: Mild Improves with: Reports: None Worsens with: Reports: Other (uncertain) Context: Reports: Other (Has this problem chronically.) Associated Symptoms: Denies: Diaphoresis, Fever/Chills, Shortness of Breath Treatments RN CRITICAL CARE: Reports: Other (see below) (none) Bilateral Ankle Pain Score (Numeric/FACES): 3 - Related Data Allergies Allergy/AdvReac Type Severity Reaction Status Date / Time codeine Allergy Cannot Verified 03/19/17 20:45 Remember Sulfa (Sulfonamide Allergy Cannot Verified 03/19/17 20:45 Antibiotics) Remember Home Meds: Home Meds Ascorbic Acid [Vitamin C] 1 tab PO DAILY 03/11/17 [History] Vitamin E Mixed [Vitamin E] 1 tab PO DAILY 03/11/17 [History] Zinc 1 tab PO DAILY 03/11/17 [History] Acetaminophen [Tylenol] 650 mg PO Q4H PRN #0 tablet 03/26/17 [Rx] Melatonin 9 mg PO BEDTIME tablet 03/26/17 [Rx] Pantoprazole [ProTONIX] 40 mg PO BEDTIME #30 tab.cr 03/27/17 [Rx] Past Medical History Genitourinary History: Reports: Other (See Below) Other Genitourinary History: Frequency [employer]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: Musculoskeletal History: Reports: Fracture - Infectious Disease History Infectious Disease History: Reports: Chicken Pox - Past Surgical History HEENT Surgical History: Reports: Tonsillectomy Musculoskeletal Surgical History: Reports: Arthroscopic Knee, Hip Replacement Social & Family History - Family History Family Medical History: Unobtainable - Tobacco Use Smoking Status *Q: Never Smoker Second Hand Smoke Exposure: No - Caffeine Use Caffeine Use: Reports: Coffee - Recreational Drug Use Recreational Drug Use: No - Living Situation & Occupation Living situation: Reports: Review of Systems - Review of Systems Review Of Systems: See Below Constitutional: Reports: No Symptoms Eyes: Reports: No Symptoms Ears: Reports: No Symptoms Nose: Reports: No Symptoms Mouth/Throat: Reports: No Symptoms Respiratory: Reports: No Symptoms Cardiovascular: Reports: No Symptoms GI/Abdominal: Reports: No Symptoms Musculoskeletal: Reports: Other (leg swelling) Skin: Reports: No Symptoms Neurological: Reports: Numbness (both legs/feet) Psychiatric: Reports: No Symptoms ED EXAM, GENERAL - Physical Exam Exam: See Below Exam Limited By: No Limitations General Appearance: Alert, WD/WN, No Apparent Distress Extremities: Other (Trace edema of both LE's below the knees. Dariana's negative. ) Neurological: Alert, CN II-XII Intact, No Motor/Sensory Deficits, Other ( Partially oriented. Disoriented to time/date. ) Skin Exam: Warm, Dry, Intact, Normal Color, No Rash Course - Vital Signs Last Recorded V/S: Last Vital Signs Temp 36.4 C 11/24/17 14:36 Pulse 82 11/24/17 14:36 Resp 20 11/24/17 14:36 BP 193/94 H 11/24/17 14:36 Pulse Ox 94 L 11/24/17 14:36 - Orders/Labs/Meds Orders: Active Orders 24 hr Category Date Time Status GLUCOSE POC LAB TO COLLECT [POC] Stat Lab 11/24/17 14:43 Ordered Departure - Departure Time of Disposition: 14:53 Disposition: Home, Self-Care 01 Condition: Good Clinical Impression: Dependent edema Peripheral neuropathy Qualifiers: Peripheral neuropathy type: polyneuropathy, unspecified Qualified Code(s): G62.9 - Polyneuropathy, unspecified - Discharge Information Referrals: Bro Grant PA-C [Primary Care Provider] - Forms: ED Department Discharge - My Orders Last 24 Hours: My Active Orders 11/24/17 14:43 GLUCOSE POC LAB TO COLLECT [POC] Stat - Assessment/Plan Last 24 Hours: My Active Orders 11/24/17 14:43 GLUCOSE POC LAB TO COLLECT [POC] Stat
== END 2017-11-24 16:17 | disposition home or self-care (01) ==
LOC: JP.ED 14:00
DX: G62.9 Polyneuropathy, unspecified (principal); R60.0 Localized edema; Z88.2 Allergy status to sulfonamides; Z88.5 Allergy status to narcotic agent
CPT/HCPCS: 82962; 99283; 99284

== ENCOUNTER 2019-01-18 17:40 | Inpatient (IN) | payer MEDICARE, OTHER ==
[2019-01-18] MEDS ORDERED: HYDROmorphone 0.5 MG/0.5 ML Syringe IM ONE (18:21)
--- NOTE | 2019-01-18 18:32 | EDM.PDOC ---
<MccraryAggie byrd - Last Filed: 01/18/19 18:27> ED HPI GENERAL MEDICAL PROBLEM - General Chief Complaint: Upper Extremity Injury/Pain Stated Complaint: FELL Time Seen by Provider: 01/18/19 17:45 - History of Present Illness INITIAL COMMENTS - FREE TEXT/NARRATIVE: Carline Curtis is an 83 year old female who presents to the E.D. via ambulance as a result of a [facility]. She indicates the fall occurred about 5 hours ago and she was alone. She was attempting to close the door after some guests had left when she tripped on her shoes and ended up falling backwards on her buttocks and bilateral wrists. She notes that she did not lose consciousness. She indicates pain is a 10/10 on bilateral wrists. She also states her right shoulder has pain, as well as her bilateral knees. Further symptoms are denied at this time. Onset: Today Quality: Reports: Ache, Sharp, Throbbing Severity: Severe Worsens with: Reports: Movement Context: Reports: Trauma Bilateral Wrist Pain Score (Numeric/FACES): 8 - Related Data Allergies Allergy/AdvReac Type Severity Reaction Status Date / Time codeine Allergy Cannot Verified 12/29/18 09:46 Remember Sulfa (Sulfonamide Allergy Cannot Verified 12/29/18 09:46 Antibiotics) Remember Home Meds: Home Meds Ascorbic Acid [Vitamin C] 1 tab PO DAILY 03/11/17 [History] Vitamin E Mixed [Vitamin E] 1 tab PO DAILY 03/11/17 [History] Zinc 1 tab PO DAILY 03/11/17 [History] Acetaminophen [Tylenol] 650 mg PO Q4H PRN #0 tablet 03/26/17 [Rx] Melatonin 9 mg PO BEDTIME tablet 03/26/17 [Rx] Past Medical History Cardiovascular History: Reports: Heart Failure Genitourinary History: Reports: Other (See Below) Other Genitourinary History: Frequency [employer] History: Reports: Musculoskeletal History: Reports: Fracture Other Musculoskeletal History: chronic pain syndrome. Endocrine/Metabolic History: Reports: Other (See Below) Other Endocrine/Metabolic History: peripheral polyneuropathy. - Infectious Disease History Infectious Disease History: Reports: Chicken Pox - Past Surgical History HEENT Surgical History: Reports: Tonsillectomy GI Surgical History: Reports: Other (See Below) Other GI Surgeries/Procedures: duodnel ulcer Musculoskeletal Surgical History: Reports: Arthroscopic Knee, Hip Replacement Social & Family History - Family History Family Medical History: Unobtainable - Tobacco Use Smoking Status *Q: Never Smoker - Caffeine Use Caffeine Use: Reports: Coffee - Recreational Drug Use Recreational Drug Use: No - Living Situation & Occupation Living situation: Reports: Review of Systems - Review of Systems Constitutional: Reports: Chills Eyes: Denies: Blurred Vision ED EXAM, GENERAL - Physical Exam Free Text/Narrative:: MSK: Limited exam performed due to severe pain upon movement and palpation. Inspection of bilateral wrists revealed moderate swelling on the dorsal aspect of the radius and ulna. She was not able to perform ROM. Bilateral elbows revealed tenderness upon palpation. Right shoulder was tender, negative for swelling and bruising. Bilateral knees were also tender, upon passive ROM, pain was produced on abduction and adduction of hips. Sensation was intact. Exam Limited By: Other (pain) General Appearance: Alert, WD/WN, Severe Distress, Other (pain severe in bilateral wrists) Respiratory/Chest: No Respiratory Distress, No Accessory Muscle Use Extremities: No Pedal Edema, Limited Range of Motion Neurological: Alert, Oriented Skin Exam: Warm Course - Vital Signs Last Recorded V/S: Last Vital Signs Temp 36.7 C 01/20/19 07:33 Pulse 89 01/20/19 07:33 Resp 18 01/20/19 07:33 BP 150/72 H 01/20/19 07:33 Pulse Ox 92 L 01/20/19 07:33 - Orders/Labs/Meds Orders: Active Orders 24 hr Category Date Time Status NPO Now [Nothing per Oral Now Diet] [DIET] Diet 01/19/19 Lunch Active Acetaminophen [Tylenol Extra Strength] Med 01/19/19 14:00 Active 1,000 mg PO TID Docusate Sodium/Sennosides [Senna Plus] Med 01/19/19 21:00 Active 1 tab PO BID Medication Orders Acetaminophen (Tylenol Extra Strength) 1,000 mg PO TID [facility] Last Admin: 01/19/19 20:26 Dose: 1,000 mg Admin: 01/19/19 15:14 Dose: Albuterol (Proventil Neb Soln) 2.5 mg NEB Q4H PRN PRN Reason: Shortness Of Breath/wheezing Melatonin (Melatonin) 9 mg PO BEDTIME [facility] Last Admin: 01/19/19 21:13 Dose: 9 mg Admin: 01/18/19 22:40 Dose: 9 mg Ondansetron HCl (Zofran Odt) 4 mg PO Q6H PRN PRN Reason: Nausea able to take PO Last Admin: 01/18/19 22:41 Dose: 4 mg Ondansetron HCl (Zofran) 4 mg IV Q4H PRN PRN Reason: Nausea/Vomiting Oxycodone HCl (Oxycodone) 5 mg PO Q4H PRN PRN Reason: Pain (moderate 4-6) Last Admin: 01/20/19 04:30 Dose: 5 mg Admin: 01/20/19 01:05 Dose: 5 mg Admin: 01/19/19 20:25 Dose: 5 mg Admin: 01/19/19 11:39 Dose: 5 mg Admin: 01/19/19 07:59 Dose: 5 mg Admin: 01/19/19 02:34 Dose: 5 mg Admin: 01/18/19 22:38 Dose: 5 mg Senna/Docusate Sodium (Senna Plus) 1 tab PO BID [facility] Last Admin: 01/19/19 21:13 Dose: 1 tab Sodium Chloride (Saline Flush) 10 ml FLUSH ASDIRECTED PRN PRN Reason: Keep Vein Open Labs: Laboratory Tests 01/18/19 01/18/19 01/18/19 Range/Units 19:50 19:50 20:30 WBC 6.1 (4.5-11.0) K/uL RBC 3.52 (3.30-5.50) M/uL Hgb 11.2 L D (12.0-15.0) g/dL Hct 35.8 L (36.0-48.0) % MCV 102 H (80-98) fL MCH 32 H (27-31) pg MCHC 31 L (32-36) % Plt Count 235 (150-400) K/uL Neut % (Auto) 60 (36-66) % Lymph % (Auto) 29 (24-44) % [place] % (Auto) 8 H (2-6) % Eos % (Auto) 3 (2-4) % Baso % (Auto) 0 (0-1) % Sodium 143 (140-148) mmol/L Potassium 4.1 (3.6-5.2) mmol/L Chloride 107 (100-108) mmol/L Carbon Dioxide 26 (21-32) mmol/L Anion Gap 9.6 (5.0-14.0) mmol/L BUN 31 H D (7-18) mg/dL Creatinine 1.1 H (0.6-1.0) mg/dL Est Cr Clr Drug Dosing 30.11 mL/min Estimated GFR (MDRD) 47 L (>60) Glucose 105 (74-106) mg/dL Calcium 9.7 D (8.5-10.1) mg/dL Total Bilirubin 0.3 (0.2-1.0) mg/dL AST 23 (15-37) U/L ALT 18 (12-78) U/L Alkaline Phosphatase 104 (46-116) U/L Total Protein 7.2 (6.4-8.2) g/dL Albumin 3.6 (3.4-5.0) g/dL Globulin 3.6 H (2.3-3.5) g/dL Albumin/Globulin Ratio 1.0 L (1.2-2.2) Urine Color Yellow Urine Appearance Clear Urine pH 7.0 (4.5-8.0) Ur Specific [place] 1.010 (1.008-1.030) Urine Protein Negative (NEGATIVE) mg/dL Urine Glucose (UA) Normal (NEGATIVE) mg/dL Urine Ketones Negative (NEGATIVE) mg/dL Urine Occult Blood Negative (NEGATIVE) Urine Nitrite Negative (NEGATIVE) Urine Bilirubin Negative (NEGATIVE) Urine Urobilinogen Normal (NORMAL) mg/dL Ur Leukocyte Esterase Moderate (NEGATIVE) Urine RBC Not seen (0-5) Urine WBC 10-20 H (0-5) Ur Epithelial Cells Not seen Amorphous Sediment Not seen Urine Bacteria Few Urine Mucus Not seen Meds: Medications Generic Name Dose Route Start Last Admin Trade Name Freq PRN Reason Stop Dose Admin Acetaminophen 1,000 mg 01/19/19 14:00 01/19/19 20:26 Tylenol Extra Strength PO 1,000 mg TID SHIRAZ Administration Albuterol 2.5 mg 01/18/19 20:56 Proventil Neb Soln NEB Q4H PRN Shortness Of Breath/wheezing Melatonin 9 mg 01/18/19 21:00 01/19/19 21:13 Melatonin PO 9 mg BEDTIME SHIRAZ Administration Ondansetron HCl 4 mg 01/18/19 20:56 01/18/19 22:41 Zofran Odt PO 4 mg Q6H PRN Administration Nausea able to take PO Ondansetron HCl 4 mg 01/18/19 20:56 Zofran IV Q4H PRN Nausea/Vomiting Oxycodone HCl 5 mg 01/18/19 20:56 01/20/19 04:30 Oxycodone PO 5 mg Q4H PRN Administration Pain (moderate 4-6) Senna/Docusate Sodium 1 tab 01/19/19 21:00 01/19/19 21:13 Senna Plus PO 1 tab BID SHIRAZ Administration Sodium Chloride 10 ml 01/18/19 20:56 Saline Flush FLUSH ASDIRECTED PRN Keep Vein Open Discontinued Medications Generic Name Dose Route Start Last Admin Trade Name Freq PRN Reason Stop Dose Admin Acetaminophen 650 mg 01/18/19 20:56 01/19/19 08:00 Tylenol PO 650 mg Q4H PRN Administration Pain (Mild 1-3)/fever Bupivacaine HCl Confirm 01/19/19 11:43 01/19/19 14:17 Marcaine 0.5% Administered 01/19/19 11:44 17 ml Dose Administration 30 ml .ROUTE .STK-MED ONE Bupivacaine HCl/Epinephrine Bitart Confirm 01/19/19 11:43 Marcaine 0.5%/Epinephrine 1:200,000 Administered 01/19/19 11:44 Dose 50 ml .ROUTE .STK-MED ONE Dexamethasone Confirm 01/19/19 11:24 Dexamethasone Administered 01/19/19 11:25 Dose 4 mg .ROUTE .STK-MED ONE Docusate Sodium 100 mg 01/18/19 21:00 01/19/19 09:43 Colace PO 100 mg BID SHIRAZ Administration Ephedrine Sulfate Confirm 01/19/19 13:42 Ephedrine Sulfate Administered 01/19/19 13:43 Dose 50 mg .ROUTE .STK-MED ONE Fentanyl Confirm 01/19/19 11:24 Sublimaze Administered 01/19/19 11:25 Dose 250 mcg .ROUTE .STK-MED ONE Hydromorphone HCl 0.5 mg 01/18/19 18:21 01/18/19 18:25 Dilaudid IM 01/18/19 18:22 0.5 mg ONETIME ONE Administration Cefazolin Sodium/Dextrose 1 gm 50 mls @ 100 mls/hr 01/19/19 12:00 01/19/19 13 :09 / Premix IV 01/19/19 12:29 100 mls/hr ONCALL ONE Administration Sodium Chloride Confirm 01/19/19 14:21 Normal Saline Administered 01/19/19 14:22 Dose 500 mls @ as directed .ROUTE .STK-MED ONE Ceftriaxone Sodium 1 gm/ 50 mls @ 100 mls/hr 01/19/19 19:54 01/19/19 20:26 Sodium Chloride IV 01/19/19 20:23 100 mls/hr ONETIME ONE Administration Lorazepam 0.5 mg 01/19/19 19:55 01/19/19 21:13 Ativan IVPUSH 01/19/19 19:56 Not Given ONETIME ONE Ondansetron HCl 4 mg 01/18/19 20:37 01/18/19 20:52 Zofran Odt PO 01/18/19 20:38 4 mg ONETIME ONE Administration Ondansetron HCl Confirm 01/19/19 11:24 Zofran Administered 01/19/19 11:25 Dose 4 mg .ROUTE .STK-MED ONE Propofol Confirm 01/19/19 11:24 Diprivan 20 Ml Administered 01/19/19 11:25 Dose 200 mg .ROUTE .STK-MED ONE Rocuronium [place] Confirm 01/19/19 11:24 Zemuron Administered 01/19/19 11:25 Dose 50 mg .ROUTE .STK-MED ONE Succinylcholine Chloride Confirm 01/19/19 11:24 Quelicin Administered 01/19/19 11:25 Dose 200 mg .ROUTE .STK-MED ONE Departure - Departure Disposition: Admitted As Inpatient 65 Clinical Impression: Wrist fracture, bilateral Qualifiers: Encounter type: initial encounter Fracture type: closed Qualified Code(s): S62.101A - Fracture of unspecified carpal bone, right wrist, initial encounter for closed fracture Contusion of right shoulder Qualifiers: Encounter type: initial encounter Qualified Code(s): S40.011A - Contusion of right shoulder, initial encounter Contusion of left knee Qualifiers: Encounter type: initial encounter Qualified Code(s): S80.02XA - Contusion of left knee, initial encounter Contusion of right knee Qualifiers: Encounter type: initial encounter Qualified Code(s): S80.01XA - Contusion of right knee, initial encounter - Discharge Information <Jumana Biggs - Last Filed: 01/20/19 07:45> Review of Systems - Review of Systems Review Of Systems: See Below ED EXAM, GENERAL - Physical Exam Exam: See Below Course - Orders/Labs/Meds Labs: Laboratory Tests 01/18/19 01/18/19 01/18/19 Range/Units 19:50 19:50 20:30 WBC 6.1 (4.5-11.0) K/uL RBC 3.52 (3.30-5.50) M/uL Hgb 11.2 L D (12.0-15.0) g/dL Hct 35.8 L (36.0-48.0) % MCV 102 H (80-98) fL MCH 32 H (27-31) pg MCHC 31 L (32-36) % Plt Count 235 (150-400) K/uL Neut % (Auto) 60 (36-66) % Lymph % (Auto) 29 (24-44) % [place] % (Auto) 8 H (2-6) % Eos % (Auto) 3 (2-4) % Baso % (Auto) 0 (0-1) % Sodium 143 (140-148) mmol/L Potassium 4.1 (3.6-5.2) mmol/L Chloride 107 (100-108) mmol/L Carbon Dioxide 26 (21-32) mmol/L Anion Gap 9.6 (5.0-14.0) mmol/L BUN 31 H D (7-18) mg/dL Creatinine 1.1 H (0.6-1.0) mg/dL Est Cr Clr Drug Dosing 30.11 mL/min Estimated GFR (MDRD) 47 L (>60) Glucose 105 (74-106) mg/dL Calcium 9.7 D (8.5-10.1) mg/dL Total Bilirubin 0.3 (0.2-1.0) mg/dL AST 23 (15-37) U/L ALT 18 (12-78) U/L Alkaline Phosphatase 104 (46-116) U/L Total Protein 7.2 (6.4-8.2) g/dL Albumin 3.6 (3.4-5.0) g/dL Globulin 3.6 H (2.3-3.5) g/dL Albumin/Globulin Ratio 1.0 L (1.2-2.2) Urine Color Yellow Urine Appearance Clear Urine pH 7.0 (4.5-8.0) Ur Specific [place] 1.010 (1.008-1.030) Urine Protein Negative (NEGATIVE) mg/dL Urine Glucose (UA) Normal (NEGATIVE) mg/dL Urine Ketones Negative (NEGATIVE) mg/dL Urine Occult Blood Negative (NEGATIVE) Urine Nitrite Negative (NEGATIVE) Urine Bilirubin Negative (NEGATIVE) Urine Urobilinogen Normal (NORMAL) mg/dL Ur Leukocyte Esterase Moderate (NEGATIVE) Urine RBC Not seen (0-5) Urine WBC 10-20 H (0-5) Ur Epithelial Cells Not seen Amorphous Sediment Not seen Urine Bacteria Few Urine Mucus Not seen - Re-Assessments/Exams Free Text/Narrative Re-Assessment/Exam: 01/18/19 19:45 pt has lurdes;ateral wris fractures with impaction. These were splinted and were more comfortable for her. The knees appeared normal. Her pelvis did not show a fracture, her rt shoulder does not show a definite fracture. Departure - Departure Time of Disposition: 19:47 Condition: Fair
--- NOTE | 2019-01-18 19:55 | CRLCR ---
INDICATION: Bilateral pain after fall. COMPARISON: None available. FINDINGS: Both knees were examined with AP, lateral and tunnel views for a total of 3 views of each knee. There is no sign of fracture or dislocation. On the right, there is moderate narrowing of the medial and lateral joint compartments, more prominent laterally than medially. No additional degenerative changes are seen, and the findings are that of mild primary osteoarthritis. The right patellofemoral joint compartment is normal in appearance. There is no sign of a joint effusion on the right. On the left, the components of a total knee prosthesis are in anatomic alignment, with no sign of fracture, loosening, or dislocation. IMPRESSION: No sign of acute osseous injury to the knees. 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 Satisfactory appearance of the components of a left total knee prosthesis. Dictated by Julio Rubi MD @ Jan 18 2019 7:51PM Signed by Dr. Julio Rubi @ Jan 18 2019 7:54PM
--- NOTE | 2019-01-18 19:56 | CRLCR ---
INDICATION: Pain after fall COMPARISON: None available. TECHNIQUE: The right shoulder was examined with AP and outlet views for a total of two views. FINDINGS: The osseous structures are in anatomic alignment without fracture or dislocation. There is anatomic alignment of the humeral head and glenoid. The visualized chest is clear. IMPRESSION: Normal right shoulder. Dictated by Julio Rubi MD @ Jan 18 2019 7:54PM Signed by Dr. Julio Rubi @ Jan 18 2019 7:56PM
--- NOTE | 2019-01-18 20:07 | CRLCR ---
INDICATION: Bilateral wrist pain after fall. COMPARISON: None available. FINDINGS: Both wrists are examined with PA, lateral, and oblique views. On the left, there is an acute, comminuted, impacted, transverse fracture of the distal radius with approximately 30 degrees dorsal angulation of the distal fracture fragment. There is distinct shortening of the radius resulting in positive ulnar variance. It is possible that this is an old fracture, but there are cortical step-offs on the lateral view consistent with acute fractures. There is a well-circumscribed lucency of the base of the ulnar styloid, consistent with an old, ununited transverse fracture versus nonunited ossification center. There is mild primary osteoarthritis of the triscaphe region at the base of the left thumb. No additional degenerative changes are seen. On the right, there is an acute, comminuted, transverse and longitudinal, intra-articular fracture of the distal radius with approximately 15 degrees dorsal angulation of the major distal fracture fragments. The longitudinal fracture line passes into the articular surface at the area of the scapholunate articulation. A small ossification is seen adjacent to the ulnar styloid consistent with a tiny mildly displaced avulsion fracture of the ulnar styloid. An oblique fracture line is also seen passing through the base of the ulnar styloid with minimal displacement. There is no sign of any significant degenerative disease in the right wrist. IMPRESSION: Acute, comminuted, impacted, transverse, mildly angulated fracture of the left distal radius. Acute, comminuted, impacted, transverse and longitudinal, mildly angulated, intra-articular fracture of the right distal radius. Mildly displaced acute avulsion fracture of the right ulnar styloid. Minimally displaced oblique fracture of the base of the right ulnar styloid. Dictated by Julio Rubi MD @ Jan 18 2019 7:59PM Signed by Dr. Julio Rubi @ Jan 18 2019 8:06PM
--- NOTE | 2019-01-18 20:13 | CRLCR ---
HISTORY: Pain after fall COMPARISON: CT of the pelvis from 03/19/2017 FINDINGS: A single AP view of the pelvis is obtained. The components of a right total hip prosthesis remain in anatomic alignment with no sign of fracture, loosening, or dislocation. The left hip is intact, with no sign of fracture or dislocation. The previously seen acute fracture of the left inferior pubic ramus has healed with mild deformity. There is no sign of acute fracture of the pelvis. There is prominent disc degenerative disease at L5-S1, unchanged from the previous study. The soft tissues of the pelvis are unremarkable. IMPRESSION: No sign of acute osseous injury to the pelvis. Stable satisfactory appearance of the components of a right total hip prosthesis. Satisfactory interval healing of a fracture of the left inferior pubic ramus. Dictated by Julio Rubi MD @ Jan 18 2019 8:08PM Signed by Dr. Julio Rubi @ Jan 18 2019 8:11PM
[2019-01-18] MEDS ORDERED: Ondansetron 4 MG Tab.DIS PO ONE (20:37)
[2019-01-18] MEDS ORDERED: Sodium Chloride 0.9% 10 ML Syringe FLUSH PRN (20:56)
[2019-01-18] MEDS ORDERED: Ondansetron 4 MG Tab.DIS PO PRN (20:56)
[2019-01-18] MEDS ORDERED: Ondansetron 4 MG/2 ML SDV IV PRN (20:56)
[2019-01-18] MEDS ORDERED: Albuterol 0.083% 2.5 MG/3 ML Neb Soln NEB PRN (20:56)
--- NOTE | 2019-01-18 22:32 | PCM.HP ---
H&P History of Present Illness - General Date of Service: 01/18/19 Admit Problem/Dx: Admission Diagnosis/Problem Admission Diagnosis/Problem Fracture of wrist Source of Information: Patient, Provider, RN History Limitations: Reports: No Limitations - History of Present Illness Initial Comments - Free Text/Narative: Chief Complaint: Upper Extremity Injury/Pain Stated Complaint: FELL - History of Present Illness INITIAL COMMENTS - FREE TEXT/NARRATIVE: Carline Curtis is an 83 year old female who presents to the E.D. via ambulance as a result of a fall at [place] where she resides. She indicates the fall occurred about 5 hours ago and she was alone. She was attempting to close the door after some guests had left when she tripped on her shoes and ended up falling backwards on her buttocks and bilateral wrists. She notes that she did not lose consciousness. She indicates pain is a 10/10 on bilateral wrists. She also states her right shoulder has pain, as well as her bilateral knees. Further symptoms are denied at this time. Onset of Symptoms: Reports: Sudden Duration of Symptoms: Reports: Hour(s): Location: Reports: Generalized (bilateral wrist pain, generalized aches and pain. ) Quality: Reports: Pressure, Throbbing Severity: Severe Improves with: Reports: Immobilization Worsens with: Reports: Movement Context: Reports: Trauma (fall in her apartment) Associated Symptoms: Reports: No Other Symptoms Bilateral Wrist Pain Score (Numeric/FACES): 8 - Related Data Allergies/Adverse Reactions: Allergies Allergy/AdvReac Type Severity Reaction Status Date / Time codeine Allergy Cannot Verified 12/29/18 09:46 Remember Sulfa (Sulfonamide Allergy Cannot Verified 12/29/18 09:46 Antibiotics) Remember Home Medications: Home Meds Ascorbic Acid [Vitamin C] 1 tab PO DAILY 03/11/17 [History] Vitamin E Mixed [Vitamin E] 1 tab PO DAILY 03/11/17 [History] Zinc 1 tab PO DAILY 03/11/17 [History] Acetaminophen [Tylenol] 650 mg PO Q4H PRN #0 tablet 03/26/17 [Rx] Melatonin 9 mg PO BEDTIME tablet 03/26/17 [Rx] Past Medical History Cardiovascular History: Reports: Heart Failure Genitourinary History: Reports: Other (See Below) Other Genitourinary History: Frequency [employer] History: Reports: Musculoskeletal History: Reports: Fracture Other Musculoskeletal History: chronic pain syndrome. Endocrine/Metabolic History: Reports: Other (See Below) Other Endocrine/Metabolic History: peripheral polyneuropathy. - Infectious Disease History Infectious Disease History: Reports: Chicken Pox, Rheumatic Fever - Past Surgical History HEENT Surgical History: Reports: Tonsillectomy GI Surgical History: Reports: Other (See Below) Other GI Surgeries/Procedures: duodnel ulcer Female Surgical History: Reports: None Musculoskeletal Surgical History: Reports: Arthroscopic Knee, Hip Replacement Social & Family History - Family History Family Medical History: Unobtainable - Tobacco Use Smoking Status *Q: Never Smoker Second Hand Smoke Exposure: No - Caffeine Use Caffeine Use: Reports: Coffee, Tea - Recreational Drug Use Recreational Drug Use: No - Living Situation & Occupation Living situation: Reports: (lives alone in [facility].) H&P Review of Systems - Review of Systems: Review Of Systems: See Below General: Reports: Other (bilateral wrist pain. pain in right shoulder, left hip) HEENT: Reports: Glasses, Other (dentures) Pulmonary: Reports: No Symptoms Cardiovascular: Reports: No Symptoms Gastrointestinal: Reports: No Symptoms Genitourinary: Reports: No Symptoms Musculoskeletal: Reports: Shoulder Pain (right), Arm Pain (bialteral fractured wrist), Leg Pain (left leg and hip pain), Foot Pain (bilateral numbness if foot : from toes to heels.) Skin: Reports: No Symptoms Psychiatric: Reports: No Symptoms Neurological: Reports: Paresthesia (reports feet are numb from toes to heels) Hematologic/Lymphatic: Reports: No Symptoms Immunologic: Reports: No Symptoms Exam - Exam Exam: See Below - Vital Signs Vital Signs: Last Vital Signs Temp 35.9 C 01/18/19 20:56 Pulse 76 01/18/19 20:56 Resp 14 01/18/19 20:56 BP 147/81 H 01/18/19 20:56 Pulse Ox 95 01/18/19 20:56 Weight: 69.853 kg - Exam General: Alert, Oriented, Cooperative, Moderate Distress (reports bilateral wrist pain, throbbing), Other (pleasant, answers appropriately, neat and well groomed. appears states age. ) HEENT: PERRLA, Hearing Intact, Mucosa Moist & [place], Nares Patent, Normal Nasal Septum, Posterior Pharynx Clear, Conjunctiva Clear, EOMI, EACs Clear, TMs Clear Neck: Supple, Trachea Midline Lungs: Clear to Auscultation, Normal Respiratory Effort Cardiovascular: Regular Rate, Regular Rhythm, Normal S1, Normal S2 GI/Abdominal Exam: Normal Bowel Sounds, Soft, Non-Tender, No Organomegaly, No Distention, No Abnormal Bruit, No Mass, Pelvis Stable Back Exam: Normal Inspection, Full Range of Motion, NT Extremities: Normal Capillary Refill, Pedal Edema (bilateral), Arm Pain, Limited Range of Motion (bilateral wrist fracture. contusion to right shoulder, left hip and bilateral knees), Other (bilateral cock up splint to arms.) Peripheral Pulses: 2+: Posterior Tibial (L), Posterior Tibial (R), Dorsalis Pedis (L), Dorsalis Pedis (R) Skin: Warm, Dry, Intact Neurological: Normal Speech, Normal Tone, Other (numbness noted to toes to heels of feet bilateral) Neuro Extensive - Mental Status: Alert, Oriented x3, Normal Mood/Affect Psychiatric: Alert, Normal Affect, Normal Mood - Patient Data Lab Results Last 24 hrs: Laboratory Results - last 24 hr 01/18/19 01/18/19 01/18/19 Range/Units 19:50 19:50 20:30 WBC 6.1 (4.5-11.0) K/uL RBC 3.52 (3.30-5.50) M/uL Hgb 11.2 L D (12.0-15.0) g/dL Hct 35.8 L (36.0-48.0) % MCV 102 H (80-98) fL MCH 32 H (27-31) pg MCHC 31 L (32-36) % Plt Count 235 (150-400) K/uL Neut % (Auto) 60 (36-66) % Lymph % (Auto) 29 (24-44) % [place] % (Auto) 8 H (2-6) % Eos % (Auto) 3 (2-4) % Baso % (Auto) 0 (0-1) % Sodium 143 (140-148) mmol/L Potassium 4.1 (3.6-5.2) mmol/L Chloride 107 (100-108) mmol/L Carbon Dioxide 26 (21-32) mmol/L Anion Gap 9.6 (5.0-14.0) mmol/L BUN 31 H D (7-18) mg/dL Creatinine 1.1 H (0.6-1.0) mg/dL Est Cr Clr Drug Dosing 30.11 mL/min Estimated GFR (MDRD) 47 L (>60) Glucose 105 (74-106) mg/dL Calcium 9.7 D (8.5-10.1) mg/dL Total Bilirubin 0.3 (0.2-1.0) mg/dL AST 23 (15-37) U/L ALT 18 (12-78) U/L Alkaline Phosphatase 104 (46-116) U/L Total Protein 7.2 (6.4-8.2) g/dL Albumin 3.6 (3.4-5.0) g/dL Globulin 3.6 H (2.3-3.5) g/dL Albumin/Globulin Ratio 1.0 L (1.2-2.2) Urine Color Yellow Urine Appearance Clear Urine pH 7.0 (4.5-8.0) Ur Specific [place] 1.010 (1.008-1.030) Urine Protein Negative (NEGATIVE) mg/dL Urine Glucose (UA) Normal (NEGATIVE) mg/dL Urine Ketones Negative (NEGATIVE) mg/dL Urine Occult Blood Negative (NEGATIVE) Urine Nitrite Negative (NEGATIVE) Urine Bilirubin Negative (NEGATIVE) Urine Urobilinogen Normal (NORMAL) mg/dL Ur Leukocyte Esterase Moderate (NEGATIVE) Urine RBC Not seen (0-5) Urine WBC 10-20 H (0-5) Ur Epithelial Cells Not seen Amorphous Sediment Not seen Urine Bacteria Few Urine Mucus Not seen Result Diagrams: 01/18/19 19:50 01/18/19 19:50 - Problem List (1) Wrist fracture, bilateral SNOMED Code(s): 881375194 ICD Code: S62.101A - FRACTURE OF UNSP CARPAL BONE, RIGHT WRIST, INIT FOR CLOS FX; S62.102A - FRACTURE OF UNSP CARPAL BONE, LEFT WRIST, INIT FOR CLOS FX Status: Acute Priority: High Current Visit: Yes Qualifiers: Encounter type: initial encounter Fracture type: closed Qualified Code(s) : S62.101A - Fracture of unspecified carpal bone, right wrist, initial encounter for closed fracture; S62.102A - Fracture of unspecified carpal bone, left wrist, initial encounter for closed fracture (2) Fall in home SNOMED Code(s): 41561746 ICD Code: W19.XXXA - UNSPECIFIED FALL, INITIAL ENCOUNTER; Y92.009 - UNSP PLACE IN UNSP NON-INSTITUT (PRIVATE) RESIDENCE PLACE Status: Acute Priority: High Current Visit: Yes Qualifiers: Encounter type: initial encounter Qualified Code(s): W19.XXXA - Unspecified fall, initial encounter; Y92.009 - Unspecified place in unspecified non-institutional (private) residence as the place of occurrence of the external cause (3) Contusion of left knee SNOMED Code(s): 50390936 ICD Code: S80.02XA - CONTUSION OF LEFT KNEE, INITIAL ENCOUNTER Status: Acute Priority: Medium Current Visit: Yes Qualifiers: Encounter type: initial encounter Qualified Code(s): S80.02XA - Contusion of left knee, initial encounter (4) Contusion of right knee SNOMED Code(s): 08549319 ICD Code: S80.01XA - CONTUSION OF RIGHT KNEE, INITIAL ENCOUNTER Status: Acute Priority: Medium Current Visit: Yes Qualifiers: Encounter type: initial encounter Qualified Code(s): S80.01XA - Contusion of right knee, initial encounter (5) Contusion of right shoulder SNOMED Code(s): 35686661 ICD Code: S40.011A - CONTUSION OF RIGHT SHOULDER, INITIAL ENCOUNTER Status : Acute Priority: Medium Current Visit: Yes Qualifiers: Encounter type: initial encounter Qualified Code(s): S40.011A - Contusion of right shoulder, initial encounter Problem List Initiated/Reviewed/Updated: Yes Orders Last 24hrs: Active Orders 24 hr Category Date Time Status Intake and Output [RC] QSHIFT Care 01/18/19 20:56 Active Notify Provider Consults [RC] ASDIRECTED Care 01/18/19 20:56 Active Oxygen Therapy [RC] PRN Care 01/18/19 20:56 Active Pulse Oximetry [RC] PRN Care 01/18/19 20:56 Active RT Aerosol Therapy [RC] ASDIRECTED Care 01/18/19 20:56 Active Up With Assistance [RC] ASDIRECTED Care 01/18/19 20:56 Active VTE/DVT Education [RC] Per Unit Routine Care 01/18/19 20:56 Active Vital Signs [RC] Q4H Care 01/18/19 20:56 Active Consult to Case Management/Oxyhydrogen Welder [CONS] Cons 01/18/19 20:56 Active Routine Consult to Physician [CONS] Routine Cons 01/18/19 20:56 Ordered Consult to Spiritual Care [CONS] Routine Cons 01/18/19 20:56 Active OT Evaluation and Treatment [CONS] Routine Cons 01/18/19 20:56 Active PT Evaluation and Treatment [CONS] Routine Cons 01/18/19 20:56 Active Regular Diet [DIET] Diet 01/18/19 Breakfast Active Acetaminophen [Tylenol] Med 01/18/19 20:56 Active 650 mg PO Q4H PRN Albuterol [Proventil Neb Soln] Med 01/18/19 20:56 Active 2.5 mg NEB Q4H PRN Docusate Sodium [Colace] Med 01/18/19 21:00 Active 100 mg PO BID Melatonin Med 01/18/19 21:00 Active 9 mg PO BEDTIME Ondansetron [Zofran ODT] Med 01/18/19 20:56 Active 4 mg PO Q6H PRN Ondansetron [Zofran] Med 01/18/19 20:56 Active 4 mg IV Q4H PRN Sodium Chloride 0.9% [Saline Flush] Med 01/18/19 20:56 Active 10 ml FLUSH ASDIRECTED PRN oxyCODONE Med 01/18/19 20:56 Active 5 mg PO Q4H PRN Saline Lock Insert [OM.PC] Routine Oth 01/18/19 20:56 Ordered Sequential Compression Device [OM.PC] Per Unit Routine Oth 01/18/19 20:56 Ordered Resuscitation Status Routine Resus Stat 01/18/19 20:24 Ordered EKG 12 Lead [EK] Routine Ther 01/18/19 19:50 Ordered Medication Orders Acetaminophen (Tylenol) 650 mg PO Q4H PRN PRN Reason: Pain (Mild 1-3)/fever Albuterol (Proventil Neb Soln) 2.5 mg NEB Q4H PRN PRN Reason: Shortness Of Breath/wheezing Docusate Sodium (Colace) 100 mg PO BID SHIRAZ Melatonin (Melatonin) 9 mg PO BEDTIME SHIRAZ Ondansetron HCl (Zofran Odt) 4 mg PO Q6H PRN PRN Reason: Nausea able to take PO Ondansetron HCl (Zofran) 4 mg IV Q4H PRN PRN Reason: Nausea/Vomiting Oxycodone HCl (Oxycodone) 5 mg PO Q4H PRN PRN Reason: Pain (moderate 4-6) Sodium Chloride (Saline Flush) 10 ml FLUSH ASDIRECTED PRN PRN Reason: Keep Vein Open Assessment/Plan Comment:: ASSESSMENT / PLAN - History of Present Illness: fall at home, bilateral wrist fractures Carline Curtis is an 83 year old female who presents to the E.D. via ambulance as a result of a fall [facility]. She indicates the fall occurred about 5 hours ago and she was alone. She was attempting to close the door after some guests had left when she tripped on her shoes and ended up falling backwards on her buttocks and bilateral wrists. She notes that she did not lose consciousness. She indicates pain is a 10/10 on bilateral wrists. She also states her right shoulder has pain, as well as her bilateral knees. Further symptoms are denied at this time. In ER, Mrs. Curtis had xray of bilateral wrist, right shoulder, pelvis and bilateral knees. X-ray of wrists show bilateral impacted fractures of radius and ulna. Other x-ray were negative for fractures on Radiologist report. She was placed in bilateral cock up splints. plan to admit to hospital for pain control, ortho consult and recommendation for home care. Plan -Admit Observation 2 North for further monitoring -ice to painful areas as needed -pain medication ordered -Zofran 4 mg Odt every 8 hrs prn nausea -consult to Orthopedics -consult to OT/PT/Case Management -Advise to notify nurses of any pain or other symptoms Maintenance issues -Orders home meds: on hold -Nutrition: Regular diet -Beckford catheter not indicated at this time -DVT: SCD -GI Prophalaxis; Protonix 40mg daily -consult to Spiritual for daily prayers CODE STATUS: Full Admission status: Admit to Observation -I expect this patient to stay less than 24 hours, not to exceed 96 hours for evaluation and management of this problem. Disposition: home , Care Home or Acute Rehab Primary care provider: MD [place]. Hospitalist: Dr. Tucker
[2019-01-18] MEDS: oxyCODONE 5 MG Tab PO PRN (22:38)
[2019-01-18] MEDS: Docusate Sodium 100 MG Cap PO SCH (22:40)
[2019-01-18] MEDS: Melatonin 3 MG Tab PO SCH (22:40)
[2019-01-19] MEDS: Acetaminophen 325 MG Tab PO PRN ×2 (02:33→08:00)
[2019-01-19] MEDS: oxyCODONE 5 MG Tab PO PRN ×4 (02:34→20:25)
[2019-01-19] MEDS: Docusate Sodium 100 MG Cap PO SCH (09:43)
--- NOTE | 2019-01-19 11:00 | PCM.PN ---
- General Info Date of Service: 01/19/19 Subjective Update: There were no acute events overnight. Patient reports mild bilateral wrist pain. This has been fairly well controlled and she has required minimal breakthrough pain medication. She is pleasantly confused this morning and frequently asked what happened and why am I here. She has not had any fevers. Case was reviewed with orthopedics and surgical intervention was recommended for both wrist fractures. Family is agreeable to surgical intervention because of will help speed up her recovery time. I believe she is an appropriate surgical candidate with no obvious contraindications. Functional Status: Reports: Pain Controlled - Patient Data Vitals - Most Recent: Last Vital Signs Temp 36.2 C 01/19/19 07:47 Pulse 67 01/19/19 07:47 Resp 16 01/19/19 07:47 BP 132/53 L 01/19/19 07:47 Pulse Ox 95 01/19/19 07:47 Weight - Most Recent: 69.853 kg I&O - Last 24 Hours: Intake & Output 01/18/19 01/19/19 01/19/19 22:59 06:59 14:59 Intake Total 100 200 Output Total 750 100 Balance -650 100 Lab Results Last 24 Hours: Laboratory Results - last 24 hr 01/18/19 01/18/19 01/18/19 Range/Units 19:50 19:50 20:30 WBC 6.1 (4.5-11.0) K/uL RBC 3.52 (3.30-5.50) M/uL Hgb 11.2 L D (12.0-15.0) g/dL Hct 35.8 L (36.0-48.0) % MCV 102 H (80-98) fL MCH 32 H (27-31) pg MCHC 31 L (32-36) % Plt Count 235 (150-400) K/uL Neut % (Auto) 60 (36-66) % Lymph % (Auto) 29 (24-44) % [place] % (Auto) 8 H (2-6) % Eos % (Auto) 3 (2-4) % Baso % (Auto) 0 (0-1) % Sodium 143 (140-148) mmol/L Potassium 4.1 (3.6-5.2) mmol/L Chloride 107 (100-108) mmol/L Carbon Dioxide 26 (21-32) mmol/L Anion Gap 9.6 (5.0-14.0) mmol/L BUN 31 H D (7-18) mg/dL Creatinine 1.1 H (0.6-1.0) mg/dL Est Cr Clr Drug Dosing 30.11 mL/min Estimated GFR (MDRD) 47 L (>60) Glucose 105 (74-106) mg/dL Calcium 9.7 D (8.5-10.1) mg/dL Total Bilirubin 0.3 (0.2-1.0) mg/dL AST 23 (15-37) U/L ALT 18 (12-78) U/L Alkaline Phosphatase 104 (46-116) U/L Total Protein 7.2 (6.4-8.2) g/dL Albumin 3.6 (3.4-5.0) g/dL Globulin 3.6 H (2.3-3.5) g/dL Albumin/Globulin Ratio 1.0 L (1.2-2.2) Urine Color Yellow Urine Appearance Clear Urine pH 7.0 (4.5-8.0) Ur Specific [place] 1.010 (1.008-1.030) Urine Protein Negative (NEGATIVE) mg/dL Urine Glucose (UA) Normal (NEGATIVE) mg/dL Urine Ketones Negative (NEGATIVE) mg/dL Urine Occult Blood Negative (NEGATIVE) Urine Nitrite Negative (NEGATIVE) Urine Bilirubin Negative (NEGATIVE) Urine Urobilinogen Normal (NORMAL) mg/dL Ur Leukocyte Esterase Moderate (NEGATIVE) Urine RBC Not seen (0-5) Urine WBC 10-20 H (0-5) Ur Epithelial Cells Not seen Amorphous Sediment Not seen Urine Bacteria Few Urine Mucus Not seen Med Orders - Current: Current Medications Acetaminophen (Tylenol Extra Strength) 1,000 mg PO TID [facility] Albuterol (Proventil Neb Soln) 2.5 mg NEB Q4H PRN PRN Reason: Shortness Of Breath/wheezing Melatonin (Melatonin) 9 mg PO BEDTIME [facility] Last Admin: 01/18/19 22:40 Dose: 9 mg Ondansetron HCl (Zofran Odt) 4 mg PO Q6H PRN PRN Reason: Nausea able to take PO Last Admin: 01/18/19 22:41 Dose: 4 mg Ondansetron HCl (Zofran) 4 mg IV Q4H PRN PRN Reason: Nausea/Vomiting Oxycodone HCl (Oxycodone) 5 mg PO Q4H PRN PRN Reason: Pain (moderate 4-6) Last Admin: 01/19/19 07:59 Dose: 5 mg Senna/Docusate Sodium (Senna Plus) 1 tab PO BID [facility] Sodium Chloride (Saline Flush) 10 ml FLUSH ASDIRECTED PRN PRN Reason: Keep Vein Open Discontinued Medications Acetaminophen (Tylenol) 650 mg PO Q4H PRN PRN Reason: Pain (Mild 1-3)/fever Last Admin: 01/19/19 08:00 Dose: 650 mg Docusate Sodium (Colace) 100 mg PO BID [facility] Last Admin: 01/19/19 09:43 Dose: 100 mg Hydromorphone HCl (Dilaudid) 0.5 mg IM ONETIME ONE Stop: 01/18/19 18:22 Last Admin: 01/18/19 18:25 Dose: 0.5 mg Ondansetron HCl (Zofran Odt) 4 mg PO ONETIME ONE Stop: 01/18/19 20:38 Last Admin: 01/18/19 20:52 Dose: 4 mg - Exam Quality Assessment: No: Supplemental Oxygen General: Alert, Cooperative, No Acute Distress. No: Oriented Lungs: Clear to Auscultation, Normal Respiratory Effort Cardiovascular: Regular Rate, Regular Rhythm, No Murmurs GI/Abdominal Exam: Soft, Non-Tender, No Distention Extremities: No Pedal Edema, Other (Both wrists are wrapped with Sundeep wraps covering an underlying splint) Skin: Warm, Dry Psy/Mental Status: Alert, Normal Affect - Problem List & Annotations (1) Wrist fracture, bilateral SNOMED Code(s): 170358739 Code(s): S62.101A - FRACTURE OF UNSP CARPAL BONE, RIGHT WRIST, INIT FOR CLOS FX; S62.102A - FRACTURE OF UNSP CARPAL BONE, LEFT WRIST, INIT FOR CLOS FX Status: Acute Priority: High Current Visit: Yes Qualifiers: Encounter type: initial encounter Fracture type: closed Qualified Code(s) : S62.101A - Fracture of unspecified carpal bone, right wrist, initial encounter for closed fracture; S62.102A - Fracture of unspecified carpal bone, left wrist, initial encounter for closed fracture (2) Alzheimer's dementia without behavioral disturbance SNOMED Code(s): 51704407 Code(s): G30.9 - ALZHEIMER'S DISEASE, UNSPECIFIED; F02.80 - DEMENTIA IN OTH DISEASES CLASSD ELSWHR W/O BEHAVRL DISTURB Status: Chronic Current Visit: Yes Qualifiers: Alzheimer's disease onset: late-onset Qualified Code(s): G30.1 - Alzheimer' s disease with late onset; F02.80 - Dementia in other diseases classified elsewhere without behavioral disturbance - Problem List Review Problem List Initiated/Reviewed/Updated: Yes - My Orders Last 24 Hours: My Active Orders 01/19/19 10:59 Admission Status [Patient Status] [ADT] Routine 01/19/19 14:00 Acetaminophen [Tylenol Extra Strength] 1,000 mg PO TID 01/19/19 21:00 Docusate Sodium/Sennosides [Senna Plus] 1 tab PO BID 01/19/19 Lunch NPO Now [Nothing per Oral Now Diet] [DIET] 01/20/19 05:00 BASIC METABOLIC PANEL,BMP [CHEM] Timed CBC W/O DIFF,HEMOGRAM [HEME] Timed (1) IRON/TIBC [CHEM] Timed - Plan Plan:: ASSESSMENT / PLAN Bilateral wrist fracture - secondary to mechanical fall. Surgical intervention recommended and family is on board. Physically she is fairly healthy and should do very well with this a low risk surgery. -Scheduled acetaminophen and as needed oxycodone for pain control -Surgical intervention planned later today -ice to painful areas as needed -consult to OT/PT Alzheimer's dementia without behavioral disturbance - patient frequently asks what happened and why she's here. Has good support at her apartment complex and the caregiver is working on trying to find 24-hour care for her in the recovery period. -Melatonin at bedtime Maintenance issues -Nutrition: Nothing by mouth until after surgery -Beckford catheter not indicated at this time -DVT: SCD -GI Prophalaxis; Protonix 40mg daily -consult to Spiritual for daily prayers CODE STATUS: Advance directive says DO NOT RESUSCITATE and DO NOT INTUBATE Admission status - patient will be transitioned to inpatient status with surgical intervention planned. Given bilateral wrist fractures I would expect her hospital recovery to take several days with her compromised ambulation at baseline. She will require a special walker to get around with bilateral wrist fractures. Disposition - I would anticipate discharge home with 24-hour care and home health versus possibly the prison Lew Tucker M.D.
[2019-01-19] MEDS ORDERED: Propofol 200 MG/20 ML SDV ONE (11:24)
[2019-01-19] MEDS ORDERED: Ondansetron 4 MG/2 ML SDV ONE (11:24)
[2019-01-19] MEDS ORDERED: Dexamethasone 4 MG/ML SDV ONE (11:24)
[2019-01-19] MEDS ORDERED: Rocuronium 50 MG/5 ML Vial ONE (11:24)
[2019-01-19] MEDS ORDERED: Succinylcholine 200 MG/10 ML MDV ONE (11:24)
[2019-01-19] MEDS ORDERED: fentaNYL 250 MCG/5 ML SDV ONE (11:24)
[2019-01-19] MEDS ORDERED: Bupivacaine 0.5%/EPINEPHrine 1:200,000 50 ML MDV ONE (11:43)
[2019-01-19] MEDS ORDERED: Bupivacaine 0.5% 30 ML SDV ONE (11:43)
[2019-01-19] MEDS ORDERED: ceFAZolin 1 GM in Premix Bag 1 BAG IV ONE (12:00)
[2019-01-19] MEDS ORDERED: ePHEDrine 50 MG/ML SDV ONE (13:42)
[2019-01-19] MEDS ORDERED: Sodium Chloride 0.9% 500 ML ONE (14:21)
[2019-01-19] MEDS: Acetaminophen 500 MG Tab PO SCH ×2 (15:14→20:26)
--- NOTE | 2019-01-19 15:52 | PCM.OPNOTE ---
- General Post-Op/Procedure Note Date of Surgery/Procedure: 01/19/19 Operative Procedure(s): Open reduction and internal fixation left distal radius , closed reduction and percutaneous pinning right distal radius Findings: bilateral displaced distal radius fractures, left with more impaction/ angulation than right Pre Op Diagnosis: bilateral displaced distal radius fractures Post-Op Diagnosis: Same Anesthesia Technique: General ET Tube Primary Surgeon: Bulmaro Renae EBL in mLs: 6 Complications: None Condition: Good Free Text/Narrative:: Intake & Output 01/19/19 01/19/19 01/19/19 06:59 14:59 22:59 Intake Total 100 200 Output Total 750 100 Balance -650 100 Indications: Patient is an 83-year-old female who sustained a fall onto both outstretched hands resulting in fractures of bilateral distal radii.x-rays show dorsally angulated impacted fractures. Left is worse than right. Discussed with the patient her caregiver and the patient's daughter the options for conservative treatment versus surgical Given that the injury involves both hands and maintaining reduction would be difficult in a cast, recommendation is made for open reduction and internal fixation of the left distal radius due to the greater angulation and impaction. Plan closed reduction and percutaneous pinning of the right distal radius if adequate reduction can be obtained. 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 Risks, benefits and potential complications of the procedure were discussed. Her daughter agrees to proceed as planned. Procedure: After adequate anesthesia was obtained splints were removed from both wrists. Tourniquets were placed about the upper arms. Both hands and wrists were prepped and draped in a sterile fashion. The left hand and arm was exsanguinated and tourniquet inflated to 200 mg of mercury pressure. Incision was made over the volar aspect of the wrist and carried down through the subcutaneous tissues. Dissection was carried out to the radial side of the median nerve. Nerve was protected throughout the case.Dissection carried down to the quadratus. Quadratus was elevated off of the fracture by sharp dissection. Fracture was evaluated. This was reduced and reduction was confirmed using C-arm. A [employer] plate was selected. This was temporarily secured with a K wire, 3.5 cortical screws were then used to secure the plate along the proximal shaft. Additional fixation was obtained with locking screws distally.Final position of the plate and screws was confirmed using C-arm.Drill guides for the remaining distal screws were removed and the wound is irrigated. Incision closed using 2-0 Vicryl and a running 3-0 Monocryl. Steri-Strips were applied. The wound and the fracture site were then injected with approximately 10 mL of 0.5% Marcaine. Attention was then turned to the right side. Fluoroscopic imaging was used to confirm closed reduction of the distal radius after manipulation. A 0.062 K wire was then advanced through the radial styloid across the fracture and into the cortex of the radius. Reduction and position of the pin was confirmed.A second K wire was then placed in a similar fashion. A 0.045 K wire was then placed on the dorsal edge of the distal radius and across the fracture site for additional stability. Final position was confirmed. Pins were bent outside of the skin and cut.Pin covers were placed. Pin sites and the fracture site were injected with 0.5% Marcaine. Sterile dressings were then applied to both wrists.Well-padded volar splints were then applied.Patient tolerated the procedure well and there were no complications she was taken from the operating room in stable condition
[2019-01-19] MEDS ORDERED: cefTRIAXone 1 GM in Sodium Chloride 0.9% 50 ML IV ONE (19:54)
[2019-01-19] MEDS ORDERED: LORazepam 2 MG/ML SDV IVPUSH ONE (19:55)
[2019-01-19] MEDS: Melatonin 3 MG Tab PO SCH (21:13)
[2019-01-20] MEDS: oxyCODONE 5 MG Tab PO PRN ×6 (01:05→22:06)
[2019-01-20] MEDS: Acetaminophen 500 MG Tab PO SCH ×3 (09:14→22:05)
[2019-01-20] MEDS: Ferrous Sulfate 325 MG Tab PO SCH ×2 (09:14→18:04)
--- NOTE | 2019-01-20 12:31 | PCM.PN ---
- General Info Date of Service: 01/20/19 Subjective Update: There were no acute events overnight. The patient had uneventful surgical intervention yesterday afternoon with ORIF of the left wrist and closed reduction and pin fixation of the right wrist. Pain is very well controlled. No behavior issues. Vital signs of been stable. No complaints of shortness of breath or abdominal pain. Functional Status: Reports: Pain Controlled, Tolerating Diet, Ambulating - Review of Systems General: Denies: Fever Musculoskeletal: Reports: Joint Pain (both wrists, mild ) - Patient Data Vitals - Most Recent: Last Vital Signs Temp 36.6 C 01/20/19 11:00 Pulse 80 01/20/19 11:00 Resp 18 01/20/19 11:00 BP 95/48 L 01/20/19 11:00 Pulse Ox 98 01/20/19 11:00 Weight - Most Recent: 69.853 kg I&O - Last 24 Hours: Intake & Output 01/19/19 01/20/19 01/20/19 22:59 06:59 14:59 Intake Total 50 250 Output Total 200 600 Balance -150 -600 250 Lab Results Last 24 Hours: Laboratory Results - last 24 hr 01/20/19 01/20/19 01/20/19 Range/Units 04:42 04:42 04:42 WBC 8.2 (4.5-11.0) K/uL RBC 3.24 L (3.30-5.50) M/uL Hgb 10.3 L (12.0-15.0) g/dL Hct 32.7 L (36.0-48.0) % MCV 101 H (80-98) fL MCH 32 H (27-31) pg MCHC 32 (32-36) % Plt Count 211 (150-400) K/uL Sodium 139 L (140-148) mmol/L Potassium 4.6 (3.6-5.2) mmol/L Chloride 103 (100-108) mmol/L Carbon Dioxide 26 (21-32) mmol/L Anion Gap 14.6 H (5.0-14.0) mmol/L BUN 25 H (7-18) mg/dL Creatinine 1.2 H (0.6-1.0) mg/dL Est Cr Clr Drug Dosing 25.07 mL/min Estimated GFR (MDRD) 43 L (>60) Glucose 126 H (74-106) mg/dL Calcium 9.2 (8.5-10.1) mg/dL Iron 28 L (50-170) ug/dL TIBC 244 L (250-450) ug/dl % Saturation 11 L (20-55) % Cruz Results Last 24 Hours: Microbiology 01/18/19 20:30 Urine Culture - Preliminary Urine, Clean Catch MIXED [facility] DAY 1 Med Orders - Current: Current Medications Acetaminophen (Tylenol Extra Strength) 1,000 mg PO TID [facility] Last Admin: 01/20/19 09:14 Dose: 1,000 mg Albuterol (Proventil Neb Soln) 2.5 mg NEB Q4H PRN PRN Reason: Shortness Of Breath/wheezing Ferrous Sulfate (Ferrous Sulfate) 325 mg PO BIDMEALS [facility] Last Admin: 01/20/19 09:14 Dose: 325 mg Melatonin (Melatonin) 9 mg PO BEDTIME [facility] Last Admin: 01/19/19 21:13 Dose: 9 mg Ondansetron HCl (Zofran Odt) 4 mg PO Q6H PRN PRN Reason: Nausea able to take PO Last Admin: 01/18/19 22:41 Dose: 4 mg Ondansetron HCl (Zofran) 4 mg IV Q4H PRN PRN Reason: Nausea/Vomiting Oxycodone HCl (Oxycodone) 5 mg PO Q4H PRN PRN Reason: Pain (moderate 4-6) Last Admin: 01/20/19 09:18 Dose: 5 mg Senna/Docusate Sodium (Senna Plus) 1 tab PO BID [facility] Last Admin: 01/20/19 09:14 Dose: 1 tab Sodium Chloride (Saline Flush) 10 ml FLUSH ASDIRECTED PRN PRN Reason: Keep Vein Open Discontinued Medications Acetaminophen (Tylenol) 650 mg PO Q4H PRN PRN Reason: Pain (Mild 1-3)/fever Last Admin: 01/19/19 08:00 Dose: 650 mg Bupivacaine HCl (Marcaine 0.5%) Confirm Administered Dose 30 ml .ROUTE .STK-MED ONE Stop: 01/19/19 11:44 Last Admin: 01/19/19 14:17 Dose: 17 ml Bupivacaine HCl/Epinephrine Bitart (Marcaine 0.5%/Epinephrine 1:200,000) Confirm Administered Dose 50 ml .ROUTE .STK-MED ONE Stop: 01/19/19 11:44 Dexamethasone (Dexamethasone) Confirm Administered Dose 4 mg .ROUTE .STK-MED ONE Stop: 01/19/19 11:25 Docusate Sodium (Colace) 100 mg PO BID [facility] Last Admin: 01/19/19 09:43 Dose: 100 mg Ephedrine Sulfate (Ephedrine Sulfate) Confirm Administered Dose 50 mg .ROUTE .STK-MED ONE Stop: 01/19/19 13:43 Fentanyl (Sublimaze) Confirm Administered Dose 250 mcg .ROUTE .STK-MED ONE Stop: 01/19/19 11:25 Hydromorphone HCl (Dilaudid) 0.5 mg IM ONETIME ONE Stop: 01/18/19 18:22 Last Admin: 01/18/19 18:25 Dose: 0.5 mg Cefazolin Sodium/Dextrose 1 gm (/ Premix) 50 mls @ 100 mls/hr IV ONCALL ONE Stop: 01/19/19 12:29 Last Admin: 01/19/19 13:09 Dose: 100 mls/hr Sodium Chloride (Normal Saline) Confirm Administered Dose 500 mls @ as directed .ROUTE .STK-MED ONE Stop: 01/19/19 14:22 Ceftriaxone Sodium 1 gm/ (Sodium Chloride) 50 mls @ 100 mls/hr IV ONETIME ONE Stop: 01/19/19 20:23 Last Admin: 01/19/19 20:26 Dose: 100 mls/hr Lorazepam (Ativan) 0.5 mg IVPUSH ONETIME ONE Stop: 01/19/19 19:56 Last Admin: 01/19/19 21:13 Dose: Not Given Ondansetron HCl (Zofran Odt) 4 mg PO ONETIME ONE Stop: 01/18/19 20:38 Last Admin: 01/18/19 20:52 Dose: 4 mg Ondansetron HCl (Zofran) Confirm Administered Dose 4 mg .ROUTE .STK-MED ONE Stop: 01/19/19 11:25 Propofol (Diprivan 20 Ml) Confirm Administered Dose 200 mg .ROUTE .STK-MED ONE Stop: 01/19/19 11:25 Rocuronium [place] (Zemuron) Confirm Administered Dose 50 mg .ROUTE .STK-MED ONE Stop: 01/19/19 11:25 Succinylcholine Chloride (Quelicin) Confirm Administered Dose 200 mg .ROUTE .STK -MED ONE Stop: 01/19/19 11:25 - Exam Quality Assessment: No: Supplemental Oxygen General: Alert, Cooperative, No Acute Distress. No: Oriented Lungs: Clear to Auscultation, Normal Respiratory Effort Cardiovascular: Regular Rate, Regular Rhythm GI/Abdominal Exam: Soft, No Distention Extremities: No Pedal Edema, Other (both wrists wrapped in coban covering AMNA wraps placed at time of surgery ) Skin: Ecchymosis (right hand and proximal fingers) Psy/Mental Status: Alert, Normal Affect - Problem List & Annotations (1) Wrist fracture, bilateral SNOMED Code(s): 489412715 Code(s): S62.101A - FRACTURE OF UNSP CARPAL BONE, RIGHT WRIST, INIT FOR CLOS FX; S62.102A - FRACTURE OF UNSP CARPAL BONE, LEFT WRIST, INIT FOR CLOS FX Status: Acute Priority: High Current Visit: Yes Qualifiers: Encounter type: initial encounter Fracture type: closed Qualified Code(s) : S62.101A - Fracture of unspecified carpal bone, right wrist, initial encounter for closed fracture; S62.102A - Fracture of unspecified carpal bone, left wrist, initial encounter for closed fracture (2) Alzheimer's dementia without behavioral disturbance SNOMED Code(s): 30972431 Code(s): G30.9 - ALZHEIMER'S DISEASE, UNSPECIFIED; F02.80 - DEMENTIA IN OTH DISEASES CLASSD ELSWHR W/O BEHAVRL DISTURB Status: Chronic Current Visit: Yes Qualifiers: Alzheimer's disease onset: late-onset Qualified Code(s): G30.1 - Alzheimer' s disease with late onset; F02.80 - Dementia in other diseases classified elsewhere without behavioral disturbance - Problem List Review Problem List Initiated/Reviewed/Updated: Yes - My Orders Last 24 Hours: My Active Orders 01/19/19 13:02 Resuscitation Status Routine 01/19/19 14:00 Acetaminophen [Tylenol Extra Strength] 1,000 mg PO TID 01/19/19 21:00 Docusate Sodium/Sennosides [Senna Plus] 1 tab PO BID 01/20/19 09:00 Ferrous Sulfate 325 mg PO BIDMEALS 01/20/19 Breakfast Regular Diet [DIET] - Plan Plan:: ASSESSMENT / PLAN Bilateral distal radius fractures - secondary to mechanical fall. Surgical intervention completed 01/19 with ORIF left wrist and close reduction and pin fixation on the right rest. Pain well-controlled and she is doing well. -Scheduled acetaminophen and as needed oxycodone for pain control -ice to painful areas as needed -consult to OT/PT -Platform walker Alzheimer's dementia without behavioral disturbance - pleasantly confused, no behavior issues. -Melatonin at bedtime Maintenance issues -Nutrition: Soft diet -Beckford catheter not indicated at this time -DVT: SCD -GI Prophalaxis; Protonix 40mg daily -consult to Spiritual for daily prayers CODE STATUS: Advance directive says DO NOT RESUSCITATE and DO NOT INTUBATE Admission status - patient will be transitioned to inpatient status with surgical intervention planned. Given bilateral wrist fractures I would expect her hospital recovery to take several days with her compromised ambulation at baseline. She will require a special walker to get around with bilateral wrist fractures. Disposition - I would anticipate discharge home with 24-hour care and home health versus possibly the group home Lew Tucker M.D.
--- NOTE | 2019-01-20 12:53 | PCM.SURGPN ---
- General Info Date of Service: 01/20/19 POD#: 1 Post-Op Diagnosis: S/P ORIF left distal radius and percutaneous pinning right distal radius Functional Status: Reports: Pain Controlled, Tolerating Diet - Review of Systems General: Reports: No Symptoms HEENT: Reports: No Symptoms Pulmonary: Reports: No Symptoms Cardiovascular: Reports: No Symptoms Psychiatric: Reports: Confusion Systems Review Comment:: Stable post -op. - Patient Data Vitals - Most Recent: Last Vital Signs Temp 36.6 C 01/20/19 11:00 Pulse 80 01/20/19 11:00 Resp 18 01/20/19 11:00 BP 95/48 L 01/20/19 11:00 Pulse Ox 98 01/20/19 11:00 Weight - Most Recent: 69.853 kg I&O - Last 24 Hours: Intake & Output 01/19/19 01/20/19 01/20/19 22:59 06:59 14:59 Intake Total 50 250 Output Total 200 600 Balance -150 -600 250 Lab Results Last 24 Hrs: Laboratory Results - last 24 hr 01/20/19 01/20/19 01/20/19 Range/Units 04:42 04:42 04:42 WBC 8.2 (4.5-11.0) K/uL RBC 3.24 L (3.30-5.50) M/uL Hgb 10.3 L (12.0-15.0) g/dL Hct 32.7 L (36.0-48.0) % MCV 101 H (80-98) fL MCH 32 H (27-31) pg MCHC 32 (32-36) % Plt Count 211 (150-400) K/uL Sodium 139 L (140-148) mmol/L Potassium 4.6 (3.6-5.2) mmol/L Chloride 103 (100-108) mmol/L Carbon Dioxide 26 (21-32) mmol/L Anion Gap 14.6 H (5.0-14.0) mmol/L BUN 25 H (7-18) mg/dL Creatinine 1.2 H (0.6-1.0) mg/dL Est Cr Clr Drug Dosing 25.07 mL/min Estimated GFR (MDRD) 43 L (>60) Glucose 126 H (74-106) mg/dL Calcium 9.2 (8.5-10.1) mg/dL Iron 28 L (50-170) ug/dL TIBC 244 L (250-450) ug/dl % Saturation 11 L (20-55) % Cruz Results Last 24 Hrs: Microbiology 01/18/19 20:30 Urine Culture - Preliminary Urine, Clean Catch MIXED [facility] DAY 1 Med Orders - Current: Current Medications Acetaminophen (Tylenol Extra Strength) 1,000 mg PO TID [facility] Last Admin: 01/20/19 09:14 Dose: 1,000 mg Albuterol (Proventil Neb Soln) 2.5 mg NEB Q4H PRN PRN Reason: Shortness Of Breath/wheezing Ferrous Sulfate (Ferrous Sulfate) 325 mg PO BIDMEALS [facility] Last Admin: 01/20/19 09:14 Dose: 325 mg Melatonin (Melatonin) 9 mg PO BEDTIME [facility] Last Admin: 01/19/19 21:13 Dose: 9 mg Ondansetron HCl (Zofran Odt) 4 mg PO Q6H PRN PRN Reason: Nausea able to take PO Last Admin: 01/18/19 22:41 Dose: 4 mg Ondansetron HCl (Zofran) 4 mg IV Q4H PRN PRN Reason: Nausea/Vomiting Oxycodone HCl (Oxycodone) 5 mg PO Q4H PRN PRN Reason: Pain (moderate 4-6) Last Admin: 01/20/19 09:18 Dose: 5 mg Senna/Docusate Sodium (Senna Plus) 1 tab PO BID [facility] Last Admin: 01/20/19 09:14 Dose: 1 tab Sodium Chloride (Saline Flush) 10 ml FLUSH ASDIRECTED PRN PRN Reason: Keep Vein Open Discontinued Medications Acetaminophen (Tylenol) 650 mg PO Q4H PRN PRN Reason: Pain (Mild 1-3)/fever Last Admin: 01/19/19 08:00 Dose: 650 mg Bupivacaine HCl (Marcaine 0.5%) Confirm Administered Dose 30 ml .ROUTE .STK-MED ONE Stop: 01/19/19 11:44 Last Admin: 01/19/19 14:17 Dose: 17 ml Bupivacaine HCl/Epinephrine Bitart (Marcaine 0.5%/Epinephrine 1:200,000) Confirm Administered Dose 50 ml .ROUTE .STK-MED ONE Stop: 01/19/19 11:44 Dexamethasone (Dexamethasone) Confirm Administered Dose 4 mg .ROUTE .STK-MED ONE Stop: 01/19/19 11:25 Docusate Sodium (Colace) 100 mg PO BID [facility] Last Admin: 01/19/19 09:43 Dose: 100 mg Ephedrine Sulfate (Ephedrine Sulfate) Confirm Administered Dose 50 mg .ROUTE .STK-MED ONE Stop: 01/19/19 13:43 Fentanyl (Sublimaze) Confirm Administered Dose 250 mcg .ROUTE .STK-MED ONE Stop: 01/19/19 11:25 Hydromorphone HCl (Dilaudid) 0.5 mg IM ONETIME ONE Stop: 01/18/19 18:22 Last Admin: 01/18/19 18:25 Dose: 0.5 mg Cefazolin Sodium/Dextrose 1 gm (/ Premix) 50 mls @ 100 mls/hr IV ONCALL ONE Stop: 01/19/19 12:29 Last Admin: 01/19/19 13:09 Dose: 100 mls/hr Sodium Chloride (Normal Saline) Confirm Administered Dose 500 mls @ as directed .ROUTE .STK-MED ONE Stop: 01/19/19 14:22 Ceftriaxone Sodium 1 gm/ (Sodium Chloride) 50 mls @ 100 mls/hr IV ONETIME ONE Stop: 01/19/19 20:23 Last Admin: 01/19/19 20:26 Dose: 100 mls/hr Lorazepam (Ativan) 0.5 mg IVPUSH ONETIME ONE Stop: 01/19/19 19:56 Last Admin: 01/19/19 21:13 Dose: Not Given Ondansetron HCl (Zofran Odt) 4 mg PO ONETIME ONE Stop: 01/18/19 20:38 Last Admin: 01/18/19 20:52 Dose: 4 mg Ondansetron HCl (Zofran) Confirm Administered Dose 4 mg .ROUTE .STK-MED ONE Stop: 01/19/19 11:25 Propofol (Diprivan 20 Ml) Confirm Administered Dose 200 mg .ROUTE .STK-MED ONE Stop: 01/19/19 11:25 Rocuronium [place] (Zemuron) Confirm Administered Dose 50 mg .ROUTE .STK-MED ONE Stop: 01/19/19 11:25 Succinylcholine Chloride (Quelicin) Confirm Administered Dose 200 mg .ROUTE .STK -MED ONE Stop: 01/19/19 11:25 - Exam Wound/Incisions: Dressing Dry and Intact Physical Findings Comment:: Splints intact, covered with Coban to prevent patient from removing due to confusion/dementia. Mild swelling in fingers with some bruising. - Problem List & Annotations (1) Wrist fracture, bilateral SNOMED Code(s): 441875873 Code(s): S62.101A - FRACTURE OF UNSP CARPAL BONE, RIGHT WRIST, INIT FOR CLOS FX; S62.102A - FRACTURE OF UNSP CARPAL BONE, LEFT WRIST, INIT FOR CLOS FX Status: Acute Priority: High Current Visit: Yes Qualifiers: Encounter type: initial encounter Fracture type: closed Qualified Code(s) : S62.101A - Fracture of unspecified carpal bone, right wrist, initial encounter for closed fracture; S62.102A - Fracture of unspecified carpal bone, left wrist, initial encounter for closed fracture - Problem List Review Problem List Initiated/Reviewed/Updated: Yes - My Orders Last 24 Hours: Active Orders 24 hr Category Date Time Status Communication Order [RC] ASDIRECTED Care 01/19/19 15:24 Active Cooling Warming Measures [RC] ASDIRECTED Care 01/19/19 15:25 Active Dietary Supplements [RC] BIDMEALS Care 01/19/19 19:54 Active Regular Diet [DIET] Diet 01/20/19 Breakfast Active Acetaminophen [Tylenol Extra Strength] Med 01/19/19 14:00 Active 1,000 mg PO TID Docusate Sodium/Sennosides [Senna Plus] Med 01/19/19 21:00 Active 1 tab PO BID Ferrous Sulfate Med 01/20/19 09:00 Active 325 mg PO BIDMEALS Ice Bag [Ice Therapy] [OM.PC] Routine Oth 01/19/19 15:25 Ordered Resuscitation Status Routine Resus Stat 01/19/19 13:02 Ordered Medication Orders Acetaminophen (Tylenol Extra Strength) 1,000 mg PO TID [facility] Last Admin: 01/20/19 09:14 Dose: 1,000 mg Admin: 01/19/19 20:26 Dose: 1,000 mg Admin: 01/19/19 15:14 Dose: Albuterol (Proventil Neb Soln) 2.5 mg NEB Q4H PRN PRN Reason: Shortness Of Breath/wheezing Ferrous Sulfate (Ferrous Sulfate) 325 mg PO BIDMEALS [facility] Last Admin: 01/20/19 09:14 Dose: 325 mg Melatonin (Melatonin) 9 mg PO BEDTIME [facility] Last Admin: 01/19/19 21:13 Dose: 9 mg Admin: 01/18/19 22:40 Dose: 9 mg Ondansetron HCl (Zofran Odt) 4 mg PO Q6H PRN PRN Reason: Nausea able to take PO Last Admin: 01/18/19 22:41 Dose: 4 mg Ondansetron HCl (Zofran) 4 mg IV Q4H PRN PRN Reason: Nausea/Vomiting Oxycodone HCl (Oxycodone) 5 mg PO Q4H PRN PRN Reason: Pain (moderate 4-6) Last Admin: 01/20/19 09:18 Dose: 5 mg Admin: 01/20/19 04:30 Dose: 5 mg Admin: 01/20/19 01:05 Dose: 5 mg Admin: 01/19/19 20:25 Dose: 5 mg Admin: 01/19/19 11:39 Dose: 5 mg Admin: 01/19/19 07:59 Dose: 5 mg Admin: 01/19/19 02:34 Dose: 5 mg Admin: 01/18/19 22:38 Dose: 5 mg Senna/Docusate Sodium (Senna Plus) 1 tab PO BID [facility] Last Admin: 01/20/19 09:14 Dose: 1 tab Admin: 01/19/19 21:13 Dose: 1 tab Sodium Chloride (Saline Flush) 10 ml FLUSH ASDIRECTED PRN PRN Reason: Keep Vein Open - Assessment Assessment (Free Text/Narrative):: S/P ORIF left wrist and pinning right wrist. Exacerbation of dementia due to anesthesia, pain medication, loss of normal routine and sleep cycle. - Plan Plan (Free Text/Narrative):: Continue splints to both wrists. Elevate for swelling. May be up with assist and trial of platform walker. Follow up with Ortho in one week for dressing change and wound check.
[2019-01-20] MEDS: Melatonin 3 MG Tab PO SCH (22:05)
[2019-01-21] MEDS: oxyCODONE 5 MG Tab PO PRN (04:18)
[2019-01-21] MEDS: Ferrous Sulfate 325 MG Tab PO SCH (08:40)
[2019-01-21] MEDS: Acetaminophen 500 MG Tab PO SCH ×2 (08:40→13:32)
[2019-01-21 11:41] VITALS: BP 114/58
--- NOTE | 2019-01-21 14:01 | PCM.DCSUM1 ---
Discharge Summary - Hospital Course Brief History: 83-year-old female with history of Alzheimer's dementia without behavioral disturbance or presented with bilateral wrist pain after tripping and falling backwards landing on outstretched arms. She was admitted for management of bilateral fractures of the proximal radius. Diagnosis: Stroke: No - Discharge Data Discharge Date: 01/21/19 Discharge Disposition: Home, W Home Health Agency 06 Condition: Good - Discharge Diagnosis/Problem(s) (1) Closed bilateral radial fractures SNOMED Code(s): 087567065 ICD Code: S52.91XA - UNSP FRACTURE OF RIGHT FOREARM, INIT FOR CLOS FX; S52.92XA - UNSP FRACTURE OF LEFT FOREARM, INIT FOR CLOS FX Status: Acute Current Visit: Yes Qualifiers: Encounter type: initial encounter Qualified Code(s): S52.91XA - Unspecified fracture of right forearm, initial encounter for closed fracture; S52.92XA - Unspecified fracture of left forearm, initial encounter for closed fracture (2) Alzheimer's dementia without behavioral disturbance SNOMED Code(s): 54492791 ICD Code: G30.9 - ALZHEIMER'S DISEASE, UNSPECIFIED; F02.80 - DEMENTIA IN OTH DISEASES CLASSD ELSWHR W/O BEHAVRL DISTURB Status: Chronic Current Visit: Yes Qualifiers: Alzheimer's disease onset: late-onset Qualified Code(s): G30.1 - Alzheimer' s disease with late onset; F02.80 - Dementia in other diseases classified elsewhere without behavioral disturbance - Patient Summary/Data Operative Procedure(s) Performed: Open reduction and internal fixation left distal radius, closed reduction and percutaneous pinning right distal radius Consults: Consultations 01/18/19 20:56 Consult to Case Management/Hospital Scientist [CONS] Routine Comment: Physician Instructions: Service(s) to be Consulted: Case Management Reason for Consult: bilateral wrist fracture, needs home care Consult to Physician [CONS] Routine Consulting Provider: Bulmaro Renae Call Completed to Consulting Physician: Yes: left message answer machine Reason for Consult: consult for bilateral wrist fracture Person Notified: Dr. Renae Date Notified: 01/18/19 Time Notified: 20:00 Consult to Spiritual Care [CONS] Routine OT Evaluation and Treatment [CONS] Routine Please Evaluate and Treat. OT Reason for Consult: Discharge Planning Special Instructions: bilateral wrist fractures, gentle ROM to bilateral elbows and fingers of both hands This query below is only for informational purposes and is not editable. PT Evaluation and Treatment [CONS] Routine Please Evaluate and Treat. PT Reason for Consult: Ambulation Special Instructions: bilateral wrist fracture, walker with bilateral forearm platforms This query below is only for informational purposes and is not editable. Hospital Course: Carline presented to the emergency room with bilateral wrist pain after tripping and falling backwards landing on outstretched arms. Imaging in the emergency room revealed evidence for bilateral impaction fractures of the proximal radius with slight angulation, left greater than right. She was admitted to the hospital initially for observation. She had mild to moderate pain overnight but in general did well. Orthopedics was consult the next morning. Imaging studies were reviewed and surgical intervention was recommended to speed up the healing process and avoid a prolonged period of casting. The patient does require a walker for ambulation and it was felt that surgical intervention would expedite healing and help her get around more safely in the postoperative period. The afternoon following admission she had an open reduction and internal fixation of the left wrist as well as a closed reduction and pin fixation of the right wrist fracture. She tolerated the procedure well. She has been stable since surgery. Pain has been well- controlled with scheduled acetaminophen and rare use of as needed oxycodone. She has been doing well with physical therapy and getting around well with a walker and platform to rest her arm son. At this point I believe she is safe for discharge to home. She will have 24-hour care to help when she gets back to her apartment. She will also have home care to provide nursing, physical therapy and occupational therapy as well as a home health aide to ease her transition to home. She has a prescription for a platform with arm extensions to go on her walker. She also has a prescription for oxycodone to help with breakthrough pain and I encouraged her to use 1000 mg of acetaminophen 3 times a day to help with mild to moderate pain. There have been no behavior issues. Caretakers that will be assisting her 24 hours and they are comfortable with the plan. - Patient Instructions Diet: Regular Diet as Tolerated Activity: As Tolerated Driving: Do Not Drive Showering/Bathing: May Shower (:) Notify Provider of: Fever, Increased Pain Other/Special Instructions: 1. You were in the hospital for management of bilateral fractures involving the proximal radius. The left wrist required open reduction and internal fixation to repair the fracture and the right wrist required closed reduction and pin fixation to repair the fracture. You should not do any lifting with your hands for at least the next 3 weeks and until you' re cleared by the orthopedic surgeon. You may bare weight on your forearms while using the platform walker. I would recommend that she take acetaminophen 1000 mg 3 times daily to help control your pain. I have also provided a prescription for oxycodone that you can use every 6 hours as needed for breakthrough pain. 2. Continue your home medications as previously prescribed. 3. I have placed a referral to home health services. They will provide physical therapy, occupational therapy, nursing services and a home health aide to help ease your transition to home. 4. Follow up with Ortho as scheduled next week. 5. Seek medical attention if you have fever greater than 101, severe pain in your wrist not controlled with your medications at home or if you have bleeding or drainage from the surgical sites. - Discharge Plan *PRESCRIPTION DRUG MONITORING PROGRAM REVIEWED*: Not Applicable *COPY OF PRESCRIPTION DRUG MONITORING REPORT IN PATIENT ANTHONY: Not Applicable Prescriptions/Med Rec: Acetaminophen [Tylenol Extra Strength] 1,000 mg PO TID #180 tablet oxyCODONE 5 mg PO Q6H PRN #10 tab PRN Reason: Pain (Moderate 4-6) Home Medications: Home Meds Ascorbic Acid [Vitamin C] 1 tab PO DAILY 03/11/17 [History] Vitamin E Mixed [Vitamin E] 1 tab PO DAILY 03/11/17 [History] Zinc 1 tab PO DAILY 03/11/17 [History] Melatonin 9 mg PO BEDTIME tablet 03/26/17 [Rx] Acetaminophen [Tylenol Extra Strength] 1,000 mg PO TID #180 tablet 01/21/19 [Rx] oxyCODONE 5 mg PO Q6H PRN #10 tab 01/21/19 [Rx] Oxygen Therapy Mode: Room Air Patient Handouts: Oxycodone tablets or capsules, Radial Fracture Referrals: Bulmaro Renae MD [Physician] - 01/27/19 1:30 pm (Please use the ER entrance and register at ER desk for appointment. Please arrive 15 minutes early to register.) - Discharge Summary/Plan Comment DC Time >30 min.: Yes (45 - setting up home health care and ordering equipment) - Patient Data Vitals - Most Recent: Last Vital Signs Temp 36.8 C 01/21/19 11:37 Pulse 80 01/21/19 11:37 Resp 18 01/21/19 11:37 BP 114/58 L 01/21/19 11:37 Pulse Ox 91 L 01/21/19 11:37 Weight - Most Recent: 69.853 kg I&O - Last 24 hours: Intake & Output 01/20/19 01/21/19 01/21/19 22:59 06:59 14:59 Intake Total 400 500 300 Balance 400 500 300 GWYN Results - Last 24 hrs: Microbiology 01/18/19 20:30 Urine Culture - Final Urine, Clean Catch MIXED MARYAM DAY 2 Med Orders - Current: Current Medications Acetaminophen (Tylenol Extra Strength) 1,000 mg PO TID [facility] Last Admin: 01/21/19 13:32 Dose: 1,000 mg Albuterol (Proventil Neb Soln) 2.5 mg NEB Q4H PRN PRN Reason: Shortness Of Breath/wheezing Ferrous Sulfate (Ferrous Sulfate) 325 mg PO BIDMEALS [facility] Last Admin: 01/21/19 08:40 Dose: 325 mg Melatonin (Melatonin) 9 mg PO BEDTIME [facility] Last Admin: 01/20/19 22:05 Dose: 9 mg Ondansetron HCl (Zofran Odt) 4 mg PO Q6H PRN PRN Reason: Nausea able to take PO Last Admin: 01/18/19 22:41 Dose: 4 mg Ondansetron HCl (Zofran) 4 mg IV Q4H PRN PRN Reason: Nausea/Vomiting Oxycodone HCl (Oxycodone) 5 mg PO Q4H PRN PRN Reason: Pain (moderate 4-6) Last Admin: 01/21/19 04:18 Dose: 5 mg Senna/Docusate Sodium (Senna Plus) 1 tab PO BID [facility] Last Admin: 01/21/19 08:40 Dose: 1 tab Sodium Chloride (Saline Flush) 10 ml FLUSH ASDIRECTED PRN PRN Reason: Keep Vein Open Discontinued Medications Acetaminophen (Tylenol) 650 mg PO Q4H PRN PRN Reason: Pain (Mild 1-3)/fever Last Admin: 01/19/19 08:00 Dose: 650 mg Bupivacaine HCl (Marcaine 0.5%) Confirm Administered Dose 30 ml .ROUTE .STK-MED ONE Stop: 01/19/19 11:44 Last Admin: 01/19/19 14:17 Dose: 17 ml Bupivacaine HCl/Epinephrine Bitart (Marcaine 0.5%/Epinephrine 1:200,000) Confirm Administered Dose 50 ml .ROUTE .STK-MED ONE Stop: 01/19/19 11:44 Dexamethasone (Dexamethasone) Confirm Administered Dose 4 mg .ROUTE .STK-MED ONE Stop: 01/19/19 11:25 Docusate Sodium (Colace) 100 mg PO BID [facility] Last Admin: 01/19/19 09:43 Dose: 100 mg Ephedrine Sulfate (Ephedrine Sulfate) Confirm Administered Dose 50 mg .ROUTE .STK-MED ONE Stop: 01/19/19 13:43 Fentanyl (Sublimaze) Confirm Administered Dose 250 mcg .ROUTE .STK-MED ONE Stop: 01/19/19 11:25 Hydromorphone HCl (Dilaudid) 0.5 mg IM ONETIME ONE Stop: 01/18/19 18:22 Last Admin: 01/18/19 18:25 Dose: 0.5 mg Cefazolin Sodium/Dextrose 1 gm (/ Premix) 50 mls @ 100 mls/hr IV ONCALL ONE Stop: 01/19/19 12:29 Last Admin: 01/19/19 13:09 Dose: 100 mls/hr Sodium Chloride (Normal Saline) Confirm Administered Dose 500 mls @ as directed .ROUTE .STK-MED ONE Stop: 01/19/19 14:22 Ceftriaxone Sodium 1 gm/ (Sodium Chloride) 50 mls @ 100 mls/hr IV ONETIME ONE Stop: 01/19/19 20:23 Last Admin: 01/19/19 20:26 Dose: 100 mls/hr Lorazepam (Ativan) 0.5 mg IVPUSH ONETIME ONE Stop: 01/19/19 19:56 Last Admin: 01/19/19 21:13 Dose: Not Given Ondansetron HCl (Zofran Odt) 4 mg PO ONETIME ONE Stop: 01/18/19 20:38 Last Admin: 01/18/19 20:52 Dose: 4 mg Ondansetron HCl (Zofran) Confirm Administered Dose 4 mg .ROUTE .STK-MED ONE Stop: 01/19/19 11:25 Propofol (Diprivan 20 Ml) Confirm Administered Dose 200 mg .ROUTE .STK-MED ONE Stop: 01/19/19 11:25 Rocuronium [place] (Zemuron) Confirm Administered Dose 50 mg .ROUTE .STK-MED ONE Stop: 01/19/19 11:25 Succinylcholine Chloride (Quelicin) Confirm Administered Dose 200 mg .ROUTE .STK -MED ONE Stop: 01/19/19 11:25 - Exam Quality Assessment: Denies: Supplemental Oxygen General: Reports: Alert, Cooperative, No Acute Distress. Denies: Oriented Lungs: Reports: Normal Respiratory Effort Cardiovascular: Reports: Regular Rate, Regular Rhythm GI/Abdominal Exam: Soft, No Distention Extremities: No Pedal Edema, Other (bothwrists and forearms wrapped with Sundeep wrap covered with Coban. No swelling on the left hand. Mild to moderate swelling of the fingers on the right hand. She is able to wiggle fingers well. Capillary refill is normal on the right side. There is some bruising of the fingers.) Skin: Reports: Warm, Dry Psy/Mental Status: Reports: Alert, Normal Affect
== END 2019-01-21 16:30 | disposition home health service (06) | DRG 511 ==
LOC: JP.ED 17:40 → JP.MS 20:15 → OBSVTOIN 01-19 10:59
PROVIDERS: ADMIT Internal Medicine; ATTEND Internal Medicine
PROC: 0PSJ04Z Reposition Left Radius with Internal Fixation Device, Open Approach (ICD-10-PCS; principal; 2019-01-19)
PROC: 0PSH34Z Reposition Right Radius with Internal Fixation Device, Percutaneous Approach (ICD-10-PCS; principal; 2019-01-19)
DX: S52.502A Unspecified fracture of the lower end of left radius, initial encounter for closed fracture (principal); S52.501A Unspecified fracture of the lower end of right radius, initial encounter for closed fracture; S52.601A Unspecified fracture of lower end of right ulna, initial encounter for closed fracture; S52.602A Unspecified fracture of lower end of left ulna, initial encounter for closed fracture; S40.011A Contusion of right shoulder, initial encounter; S80.02XA Contusion of left knee, initial encounter; S80.01XA Contusion of right knee, initial encounter; W01.0XXA Fall on same level from slipping, tripping and stumbling without subsequent striking against object, initial encounter; G30.9 Alzheimer's disease, unspecified; F02.80 Dementia in other diseases classified elsewhere, unspecified severity, without behavioral disturbance, psychotic disturbance, mood disturbance, and anxiety; I50.9 Heart failure, unspecified; G89.4 Chronic pain syndrome; G62.9 Polyneuropathy, unspecified; Z88.6 Allergy status to analgesic agent; Z88.2 Allergy status to sulfonamides; M25.532 Pain in left wrist; M25.511 Pain in right shoulder; M25.562 Pain in left knee; M25.561 Pain in right knee; M25.531 Pain in right wrist; Z79.899 Other long term (current) drug therapy; Z96.649 Presence of unspecified artificial hip joint; Z66 Do not resuscitate
CPT/HCPCS: 36415; 72170; 73030; 73110; 73562; 80053; 81001; 85025; 87086; 93005; 94762; 96372; 99285; A9270 ×10; G0378 ×2; J1170; 76000; 80048; 83550; 85027; 97110-GP; 97162-GP; 97530-GP; 97535-GP; J0330; J0690; J0696; J1100; J2405; J2704; J3010; J3490; J7040; J7050